=== PATIENT | female | born 1985 | race Caucasian/White ===

== ENCOUNTER 2016-09-01 17:45 | Outpatient (CLI) | payer BC, MEDICAID ==
[2016-09-01 19:15] LABS: APPEARANCE,URINE CLEAR; BILIRUBIN,URINE NEGATIVE (NEGATIVE); GLUCOSE, URINE NEGATIVE (NEGATIVE); KETONES,URINE NEGATIVE (NEGATIVE); LEUKOCYTE ESTERASE,URINE SMALL (NEGATIVE); NITRITE,URINE NEGATIVE (NEGATIVE); PROTEIN,URINE NEGATIVE (NEGATIVE); URINE SPECIFIC GRAVITY 1.004; UROBILINOGEN,URINE NEGATIVE mg/dL (<2.0)
[2016-09-01 19:30] LABS: ABSOLUTE EOSINOPHILS # (AUTO) 0.1 10^3/uL (0.0-0.6); ABSOLUTE MONOCYTES (AUTO) 0.5 10^3/uL (0.1-1.4); ABSOLUTE NEUT (AUTO) 6.8 10^3/uL (1.7-8.2); BASOPHILS % (AUTO) 0.3 % (0-2); EOSINOPHILS % (AUTO) 0.9 % (0-6); HEMATOCRIT 34.3 % (36.0-47.0); HEMOGLOBIN 11.3 g/dL (12.0-15.5); HGB HCT DIFFERENCE -0.4; LYMPHOCYTES % (AUTO) 21.5 % (13-45); MEAN CORPUSCULAR HEMOGLOBIN 29.5 pg (27.0-33.4); MEAN CORPUSCULAR HGB CONC 32.9 g/dL (32.0-36.0); MEAN CORPUSCULAR VOLUME 90 fl (80-97); MONOCYTES % (AUTO) 5.4 % (3-13); RED BLOOD COUNT 3.82 10^6/uL (3.72-5.28); RED CELL DISTRIBUTION WIDTH 15.2 % (11.5-14.0); SEGMENTED NEUTROPHILS % (AUTO) 71.9 % (42-78); WHITE BLOOD COUNT 9.5 10^3/uL (4.0-10.5)
[2016-09-01 19:32] LABS: URINE BARBITURATES SCREEN NEGATIVE; URINE METHADONE SCREEN NEGATIVE; URINE OPIATES LOW NEGATIVE; URINE PHENCYCLIDINE SCREEN NEGATIVE
[2016-09-01 19:41] LABS: URINE CREATININE 33.8 mg/dL (16-327); URINE PROTEIN 15.3 mg/dL (<12)
[2016-09-01 19:48] LABS: ALANINE AMINOTRANSFERASE 28 U/L (9-52); ALBUMIN 3.2 g/dL (3.5-5.0); ALKALINE PHOSPHATASE 136 U/L (38-126); ANION GAP 11 (5-19); ASPARTATE AMINO TRANSFERASE 19 U/L (14-36); BILIRUBIN,DIRECT 0.3 mg/dL (0.0-0.4); BILIRUBIN,TOTAL 0.5 mg/dL (0.2-1.3); BLOOD UREA NITROGEN 5 mg/dL (7-20); CALCIUM 8.9 mg/dL (8.4-10.2); CARBON DIOXIDE 20 mmol/L (22-30); CHLORIDE 108 mmol/L (98-107); CREATININE RESULT 0.56 mg/dL (0.52-1.25); GLUCOSE 76 mg/dL (75-110); LDH 422 U/L (313-618); POTASSIUM 3.7 mmol/L (3.6-5.0); TOTAL PROTEIN 5.9 g/dL (6.3-8.2); URIC ACID 4.4 mg/dL (2.5-6.2)
--- NOTE | 2016-09-01 20:20 | Non Stress Test Report ---
Non Stress Test Datetime Report Generated by CPN: 09/01/2016 20:20 DEMOGRAPHIC Test Number: 1 EGA NST: 35.6 INDICATION Indication for Study: Ordered by Provider MONITORING Monitor Explained: Monitor Explained; Test Explained; Patient Verbalized Understanding Time on Monitor: 09/01/2016 18:52 Time off Monitor: 09/01/2016 20:07 NST Duration: 75 NST INTERVENTIONS NST Interventions: PO Hydration; Reposition Patient Physician Notified NST: Lepe BABY A: [id number] BABY A Movement : Present Contraction Frequency : 10-15 FHR Baseline : 135 Accelerations : 15X15 Decelerations : None Variability : Moderate 6-25bpm NST Review: Meets Criteria for Reactive NST NST Review and Verified By : ALESHA Quiroz Results: Reactive NST REPORT Report Trigger: Send Report
== END 2016-09-01 20:15 | disposition home or self-care (01) ==
LOC: LC 17:45 → ER 17:45 → LC 17:45 → EDSTATUS 18:16 → LC 20:15
PROVIDERS: ATTEND Obstetrics & Gynecology
PROC: 4A0HXCZ Measurement of Products of Conception, Cardiac Rate, External Approach (ICD-10-PCS; principal; 2016-09-01)
DX: O47.03 False labor before 37 completed weeks of gestation, third trimester (principal); Z3A.35 35 weeks gestation of pregnancy
CPT/HCPCS: 36415; 59025; 80053; 80307; 81001; 82570; 83615; 84156; 84550; 85025

== ENCOUNTER 2016-09-18 16:38 | Outpatient (CLI) | payer BC, MEDICAID ==
[2016-09-18 17:15] LABS: ABSOLUTE EOSINOPHILS # (AUTO) 0.1 10^3/uL (0.0-0.6); ABSOLUTE LYMPHOCYTES (AUTO) 2.1 10^3/uL (0.5-4.7); ABSOLUTE MONOCYTES (AUTO) 0.5 10^3/uL (0.1-1.4); ABSOLUTE NEUT (AUTO) 6.2 10^3/uL (1.7-8.2); BASOPHILS % (AUTO) 0.3 % (0-2); EOSINOPHILS % (AUTO) 1.1 % (0-6); HEMATOCRIT 33.4 % (36.0-47.0); HEMOGLOBIN 11.6 g/dL (12.0-15.5); HGB HCT DIFFERENCE 1.4; LYMPHOCYTES % (AUTO) 23.4 % (13-45); MEAN CORPUSCULAR HEMOGLOBIN 30.2 pg (27.0-33.4); MEAN CORPUSCULAR HGB CONC 34.6 g/dL (32.0-36.0); MEAN CORPUSCULAR VOLUME 87 fl (80-97); MONOCYTES % (AUTO) 5.4 % (3-13); RED BLOOD COUNT 3.83 10^6/uL (3.72-5.28); RED CELL DISTRIBUTION WIDTH 14.9 % (11.5-14.0); SEGMENTED NEUTROPHILS % (AUTO) 69.8 % (42-78); WHITE BLOOD COUNT 8.8 10^3/uL (4.0-10.5)
[2016-09-18 17:26] LABS: APPEARANCE,URINE SLIGHTLY-CLOUDY; BILIRUBIN,URINE NEGATIVE (NEGATIVE); GLUCOSE, URINE NEGATIVE (NEGATIVE); KETONES,URINE NEGATIVE (NEGATIVE); LEUKOCYTE ESTERASE,URINE LARGE (NEGATIVE); NITRITE,URINE NEGATIVE (NEGATIVE); PROTEIN,URINE NEGATIVE (NEGATIVE); URINE SPECIFIC GRAVITY 1.003; UROBILINOGEN,URINE NEGATIVE mg/dL (<2.0)
[2016-09-18 17:30] LABS: ALANINE AMINOTRANSFERASE 25 U/L (9-52); ALBUMIN 3.2 g/dL (3.5-5.0); ALKALINE PHOSPHATASE 162 U/L (38-126); ANION GAP 13 (5-19); ASPARTATE AMINO TRANSFERASE 23 U/L (14-36); BILIRUBIN,DIRECT 0.3 mg/dL (0.0-0.4); BILIRUBIN,TOTAL 0.5 mg/dL (0.2-1.3); BLOOD UREA NITROGEN 3 mg/dL (7-20); CALCIUM 9.3 mg/dL (8.4-10.2); CARBON DIOXIDE 21 mmol/L (22-30); CHLORIDE 106 mmol/L (98-107); GLUCOSE 85 mg/dL (75-110); LDH 433 U/L (313-618); POTASSIUM 3.2 mmol/L (3.6-5.0); SODIUM 139.9 mmol/L (137-145); TOTAL PROTEIN 6.1 g/dL (6.3-8.2); URIC ACID 5.7 mg/dL (2.5-6.2)
[2016-09-18 17:39] LABS: URINE BARBITURATES SCREEN NEGATIVE; URINE METHADONE SCREEN NEGATIVE; URINE OPIATES LOW NEGATIVE; URINE PHENCYCLIDINE SCREEN NEGATIVE
[2016-09-18 17:44] LABS: URINE CREATININE 44.8 mg/dL (16-327); URINE PROTEIN 17.7 mg/dL (<12)
[2016-09-18] MEDS ORDERED: RINGERS SOLUTION,LACTATED 1,000 ML IV PRN (18:39)
[2016-09-18] MEDS ORDERED: HYDROXYZINE PAMOATE 50 MG CAPSULE PO ONE (21:23)
[2016-09-18] MEDS ORDERED: HYDROXYZINE PAMOATE 50 MG CAPSULE ONE (21:28)
--- NOTE | 2016-09-18 21:45 | Non Stress Test Report ---
Non Stress Test Datetime Report Generated by CPN: 09/18/2016 21:45 DEMOGRAPHIC EGA NST: 38.2 INDICATION Indication for Study: Ordered by Provider MONITORING Monitor Explained: Monitor Explained; Test Explained; Patient Verbalized Understanding Time on Monitor: 09/18/2016 17:04 Time off Monitor: 09/18/2016 20:19 NST Duration: 195 NST INTERVENTIONS NST Interventions: PO Hydration; IV Fluids; Reposition Patient Physician Notified NST: Leopoldo BABY A: [id number] BABY A Movement : Present Contraction Frequency : 4-9 FHR Baseline : 135 Accelerations : 15X15 Decelerations : None Variability : Moderate 6-25bpm NST Review: Meets Criteria for Reactive NST NST Review and Verified By : ALESHA Todd Results: Reactive NST REPORT Report Trigger: Send Report
== END 2016-09-18 21:43 | disposition home or self-care (01) ==
LOC: LC 16:38
PROVIDERS: ATTEND Obstetrics & Gynecology
PROC: 4A1HXCZ Monitoring of Products of Conception, Cardiac Rate, External Approach (ICD-10-PCS; principal; 2016-09-18)
DX: O47.1 False labor at or after 37 completed weeks of gestation (principal); Z3A.38 38 weeks gestation of pregnancy
CPT/HCPCS: 36415; 59025; 80053; 80307; 81001; 82570; 83615; 84156; 84550; 85025

== ENCOUNTER 2016-09-22 15:51 | Inpatient (IN) | payer BC, MEDICAID ==
[2016-09-22 16:45] LABS: HEMATOCRIT 35.8 % (36.0-47.0); HEMOGLOBIN 12.5 g/dL (12.0-15.5); HGB HCT DIFFERENCE 1.7; MEAN CORPUSCULAR HEMOGLOBIN 30.5 pg (27.0-33.4); MEAN CORPUSCULAR VOLUME 87 fl (80-97); RED BLOOD COUNT 4.11 10^6/uL (3.72-5.28); WHITE BLOOD COUNT 10.2 10^3/uL (4.0-10.5)
[2016-09-22 17:09] LABS: URINE BARBITURATES SCREEN NEGATIVE; URINE METHADONE SCREEN NEGATIVE; URINE OPIATES LOW NEGATIVE; URINE PHENCYCLIDINE SCREEN NEGATIVE
[2016-09-22 17:21] LABS: ALANINE AMINOTRANSFERASE 27 U/L (9-52); ALBUMIN 3.5 g/dL (3.5-5.0); ALKALINE PHOSPHATASE 182 U/L (38-126); ANION GAP 14 (5-19); ASPARTATE AMINO TRANSFERASE 27 U/L (14-36); BILIRUBIN,DIRECT 0.4 mg/dL (0.0-0.4); BILIRUBIN,TOTAL 0.7 mg/dL (0.2-1.3); BLOOD UREA NITROGEN 3 mg/dL (7-20); CALCIUM 9.2 mg/dL (8.4-10.2); CARBON DIOXIDE 18 mmol/L (22-30); CHLORIDE 107 mmol/L (98-107); CREATININE RESULT 0.72 mg/dL (0.52-1.25); GLUCOSE 79 mg/dL (75-110); LDH 487 U/L (313-618); POTASSIUM 3.5 mmol/L (3.6-5.0); SODIUM 139.2 mmol/L (137-145); TOTAL PROTEIN 6.2 g/dL (6.3-8.2); URIC ACID 5.8 mg/dL (2.5-6.2)
[2016-09-22] MEDS ORDERED: RINGERS SOLUTION,LACTATED 1,000 ML IV ONE (17:23)
[2016-09-22] MEDS ORDERED: PENICILLIN G POTASSIUM 5,000,000 UNIT in DEXTROSE 5%-WATER 100 ML IV ONE (17:23)
[2016-09-22] MEDS ORDERED: DINOPROSTONE 10 MG VAGINAL INSERT.SR PV PRN (17:24)
[2016-09-22] MEDS ORDERED: DINOPROSTONE 10 MG VAGINAL INSERT.SR ONE (17:30)
[2016-09-22 17:53] LABS: URINE CREATININE 76.3 mg/dL (16-327); URINE PROTEIN 19.7 mg/dL (<12)
[2016-09-22 18:48] LABS: BAND NEUTROPHILS % (MANUAL) 1 % (3-5); BASOPHILS % (MANUAL) 0 % (0-2); EOSINOPHILS % (MANUAL) 1 % (0-6); LYMPHOCYTES % (MANUAL) 23 % (13-45); NUCLEATED RED BLOOD CELLS 1 /100 WBC (0); TOTAL CELLS COUNTED 100
[2016-09-22 18:49] LABS: ANISOCYTOSIS SLIGHT; HYPOCHROMASIA SLIGHT
[2016-09-22] MEDS ORDERED: NALBUPHINE HCL INJ 10 MG/1 ML AMPULE ONE (19:48)
[2016-09-22] MEDS ORDERED: PENICILLIN G-K 5 MILLION UNIT VIAL ONE (19:48)
[2016-09-22] MEDS ORDERED: NALBUPHINE HCL INJ 10 MG/1 ML AMPULE INJ ONE (19:51)
[2016-09-22 20:02] LABS: AMNISURE (ROM) POSITIVE (NEGATIVE)
[2016-09-22] MEDS: RINGERS SOLUTION,LACTATED 1,000 ML IV PRN ×2 (20:04→20:34)
--- NOTE | 2016-09-22 20:21 | L&D Progress Notes ---
PROGRESS NOTES Datetime Report Generated by CPN: 09/22/2016 20:21 PROGRESS NOTE Impression: Normal Progression of Labor; Reactive Non Stress Test; Rupture of Membranes Impression: Normal Progression of Labor; Rupture of Membranes Procedures: Sterile Vag Exam Procedures: Sterile Vag Exam Plan: Continue Present Management; Induction Plan: Continue Present Management Informed Consent Obtained: Vaginal Delivery; Risks, Benefits and Alternatives Discussed Informed Consent Obtained: Vaginal Delivery; Induction of Labor; Risks, Benefits and Alternatives Discussed Vital Signs : Reviewed; Within Normal Limits Comment: Pt admitted for IOL due to GHTN and poss PreE. Mild range BPs. Pt called for poss Leakage of fluid. Exam revealed no change in cervical exam. However, + clear fluid. Amnisure done and positive. PROM at 1930. Anticipate . Continue with IOL. PCN for GBS positive prophy. VAGINAL EXAM Dilatation: 1 Dilatation: 1 Effacement: 25 Effacement: 25 Station: -3 Station: -3 Contractions: q2-4 MEMBRANES Pooling: Positive Membranes: Ruptured Membranes: Intact Amniotic Fluid Color: Clear FETUS A FHR - Baseline: 125 Monitoring: External US Variability: Moderate 6-25bpm Accelerations: 15X15 Decelerations: None FHR Category: Category I Presentation: Vertex SIGNATURE SIGNATURE: [id number];[id number] SIGNATURE: [id number] SIGNATURE: [id number] Signature: with User ID: [email or web address]
[2016-09-22] MEDS ORDERED: ONDANSETRON HCL INJ/PF 4 MG/2 ML SDV IV ONE (20:35)
[2016-09-22] MEDS ORDERED: ONDANSETRON HCL INJ/PF 4 MG/2 ML SDV ONE (20:39)
[2016-09-22 21:45] LABS: APPEARANCE,URINE SLIGHTLY-CLOUDY; BILIRUBIN,URINE NEGATIVE (NEGATIVE); GLUCOSE, URINE NEGATIVE (NEGATIVE); KETONES,URINE NEGATIVE (NEGATIVE); LEUKOCYTE ESTERASE,URINE LARGE (NEGATIVE); NITRITE,URINE NEGATIVE (NEGATIVE); PROTEIN,URINE NEGATIVE (NEGATIVE); URINE SPECIFIC GRAVITY 1.008; UROBILINOGEN,URINE NEGATIVE mg/dL (<2.0)
[2016-09-22] MEDS ORDERED: PHENYLEPHRINE HCL INJ/PF 10 MG/1 ML SDV ONE (22:23)
[2016-09-22] MEDS ORDERED: EPHEDRINE SULFATE INJ 50 MG/1 ML AMPULE ONE (22:23)
[2016-09-22] MEDS ORDERED: FENTANYL CITRATE INJ/PF 100 MCG/2 ML AMPUL ONE (22:23)
[2016-09-22] MEDS ORDERED: BUPIVACAINE HCL 0.25 % INJ/PF (2.5 MG/1 ML) 30 ML VIAL ONE (22:24)
[2016-09-22] MEDS ORDERED: FENTANYL/BUPIVACAINE/NS/PF 200 MCG/100 ML RTUINJ EPI ONE (22:24)
[2016-09-23] MEDS ORDERED: PENICILLIN G-K 5 MILLION UNIT VIAL ONE ×3 (00:16→07:30)
[2016-09-23] MEDS: PENICILLIN G POTASSIUM 2,500,000 UNIT in DEXTROSE 5%-WATER 50 ML IV SCH ×3 (00:21→07:32)
[2016-09-23] MEDS: RINGERS SOLUTION,LACTATED 1,000 ML IV PRN (00:43)
[2016-09-23] MEDS ORDERED: ONDANSETRON HCL INJ/PF 4 MG/2 ML SDV IV ONE ×2 (00:49→01:00)
[2016-09-23] MEDS ORDERED: ONDANSETRON HCL INJ/PF 4 MG/2 ML SDV ONE (00:55)
[2016-09-23] MEDS ORDERED: OXYTOCIN/NORMAL SALINE 20 UNIT/1,000 ML RTUINJ ONE (04:05)
[2016-09-23] MEDS ORDERED: MISOPROSTOL 0.2 MG TABLET ONE (04:05)
[2016-09-23] MEDS ORDERED: LIDOCAINE 1% INJ-PF (10 MG/ML) 30 ML SDV ONE (04:05)
[2016-09-23] MEDS ORDERED: OXYTOCIN/NORMAL SALINE 1,000 ML IV PRN ×2 (04:38→08:50)
[2016-09-23] MEDS ORDERED: BUPIVACAINE HCL 0.25 % INJ/PF (2.5 MG/1 ML) 30 ML VIAL ONE (06:21)
[2016-09-23] MEDS ORDERED: DIPHENHYDRAMINE HCL 50 MG/ML VIAL ONE (06:24)
[2016-09-23] MEDS ORDERED: DIPHENHYDRAMINE HCL 50 MG/ML VIAL IV ONE (06:30)
--- NOTE | 2016-09-23 07:21 | L&D Progress Notes ---
PROGRESS NOTES Datetime Report Generated by CPN: 09/23/2016 07:21 PROGRESS NOTE Impression: Normal Progression of Labor Procedures: Sterile Vag Exam Plan: Continue Present Management; Anticipate Vaginal Delivery Informed Consent Obtained: Vaginal Delivery; Risks, Benefits and Alternatives Discussed Vital Signs : Reviewed; Within Normal Limits Comment: 39+0ega here for IOL due to GHTN. BPs wnl and doing well. Cervidil initiated last pm and then SROM and pt changed to 4cm and cervidil fell out in bathroom per RN report. Ctx spaced out and then pitocin started. Bloody discharge noted and cvx reassesed - AL/c/+1. Will allow to labor down and continued cervical change. Anticipate and beginning to push soon. Reassuring FWB. EFW 8# VAGINAL EXAM Dilatation: AL Effacement: 100 Station: 1 MEMBRANES Membranes: Ruptured Amniotic Fluid Color: Clear FETUS A FHR - Baseline: 125 Monitoring: External US Variability: Moderate 6-25bpm Accelerations: 15X15 Decelerations: Early FHR Category: Category I FETUS C SIGNATURE: [id number];[id number] Signature: with User ID: [email or web address]
[2016-09-23] MEDS ORDERED: ZOLPIDEM TARTRATE 5 MG TABLET PO PRN (08:50)
[2016-09-23] MEDS ORDERED: BENZOCAINE/MENTHOL AEROSOL SPRAY 56 ML TOP PRN (08:50)
[2016-09-23] MEDS ORDERED: MEASLES,MUMPS&RUBELLA VACC/PF 0.5 ML VIAL SUBCUT PRN (08:50)
[2016-09-23] MEDS ORDERED: ACETAMINOPHEN WITH CODEINE #3 TABLET PO PRN (08:50)
[2016-09-23] MEDS ORDERED: DIBUCAINE 1% OINTMENT 28 GM TP PRN (08:50)
[2016-09-23] MEDS ORDERED: DIPH/PERTUSS(ACELL)/TETANUS VAC/PF 0.5 ML SYR (>=10YO) IM PRN (08:50)
[2016-09-23] MEDS ORDERED: ACETAMINOPHEN 325 MG TABLET ONE (10:50)
[2016-09-23 11:26] LABS: ALANINE AMINOTRANSFERASE 22 U/L (9-52); ALBUMIN 3.1 g/dL (3.5-5.0); ALKALINE PHOSPHATASE 167 U/L (38-126); ANION GAP 15 (5-19); ASPARTATE AMINO TRANSFERASE 39 U/L (14-36); BILIRUBIN,DIRECT 0.3 mg/dL (0.0-0.4); BILIRUBIN,TOTAL 0.9 mg/dL (0.2-1.3); BLOOD UREA NITROGEN 3 mg/dL (7-20); CALCIUM 8.3 mg/dL (8.4-10.2); CARBON DIOXIDE 18 mmol/L (22-30); CHLORIDE 107 mmol/L (98-107); CREATININE RESULT 0.73 mg/dL (0.52-1.25); GLUCOSE 145 mg/dL (75-110); SODIUM 139.9 mmol/L (137-145); TOTAL PROTEIN 5.7 g/dL (6.3-8.2)
[2016-09-23 11:30] LABS: POTASSIUM 2.8 mmol/L (3.6-5.0)
--- NOTE | 2016-09-23 11:35 | Admission Physical ---
Datetime Report Generated by CPN: 09/23/2016 11:34 CURRENT ADMISSION Chief Complaint: Scheduled Induction of Labor Indication for Induction: Gestational HTN Admit Plan: Admit to Unit; Initiate Labor Induction Protocol ALLERGIES Medication Allergies: No Medication Allergies: No Known Allergies (09/22/2016) Medication Allergies: No Known Allergies (09/18/2016) Medication Allergies: No Known Allergies (09/01/2016) Latex: No Latex Allergies Food Allergies: none Environmental Allergies: none OBSTETRICAL HISTORY EDC: 09/30/2016 00:00 : 3 Para: 2 Term: 2 : 0 SAB: 0 IAB: 0 Ectopic: 0 Livin Cesareans: 0 VBACs: 0 Multiple Births: 0 Gestational Diabetes: No Rh Sensitization: No Incompetent Cervix: No VAUGHN: No Infertility: No ART Treatment: No Uterine Anomaly: No IUGR: No Hx Previous C/S: No Macrosomia: No Hx Loss/Stillborn: No PIH: Yes Hx : No Placenta Previa/Abruption: No Depression/PP Depression: No PTL/PROM: No Post Hemorrhage: No Current Procedures: Ultrasound Obstetrical History Comments: G1 08/2002 40 weeks 3 days Vaginal Delivery G2 - 04/2008 38 weeks PIH Vaginal Delivery G3 - Current SEE RECORDS Alcohol: No Marijuana : No Cocaine: No Other Illicit Drugs: No Cigarettes: Former Smoker. [id number] MEDICAL HISTORY Diabetes: No Blood Transfusion: No Pulmonary Disease (Asthma, TB): No Breast Disease: No Hypertension: No Supervisor Painting Surgery: No Heart Disease: No Hosp/Surgery: Yes Autoimmune Disorder: No Anesthetic Complications: No Kidney Disease: No Abnormal Pap Smear: No Neuro/Epilepsy: No Psychiatric Disorders: No Other Medical Diseases: No Hepatitis/Liver Disease: No Significant Family History: No Varicosities/Phlebitis: No Trauma/Violence : No Thyroid Dysfunction: No Medical History Comments: CHILDBIRTH INFECTIOUS HISTORY Gonorrhea: No Genital Herpes: No Chlamydia: Yes Tuberculosis: No Syphilis: No Hepatitis: No HIV/AIDS Exposure: No Rash or Viral Illness: No HPV: No Infectious History Comments: 2009 - Chlamydia (Unsure) PHYSICAL EXAM General: Normal HEENT: Normal Neurologic: Normal Thyroid: Normal Heart: Normal Lungs: Normal Breast: Deferred Back: Normal Abdomen: Normal Genitourinary Exam: Normal Extremities: Normal DTRs: Normal Pelvic Type: Adequate Physical Exam Comments: pelvis proven to 7# Vital Signs: Reviewed Details Vital Signs: mild range BPs VAGINAL EXAM Dilatation: AL Dilatation: 1 Dilatation: 1 Effacement: 100 Effacement: 25 Effacement: 25 Station: 1 Station: -3 Station: -3 Contraction Comments: q2-4 MEMBRANES Pooling: Positive Membranes: Ruptured Membranes: Ruptured Membranes: Intact Amniotic Fluid Color: Clear Amniotic Fluid Color: Clear FETUS A EGA: 38.6 Monitoring: External US FHR- Baseline: 130 Variability: Moderate 6-25bpm Accelerations: 15X15 Decelerations: None FHR Category: Category I Presentation: Vertex Admit Comment: 30yo at 38+6ega seen in L_D last week for elevated BPs. Protein: Creatinine ratio was 0.4 but o/w labs normal. TOday P:C ration is 0.3 and o/w labs normal. H/o preE with prior . Abnormal 1 hr GTT/ normal 3 hr GTT. Rubella NI. GBS pos - PCN for prophy once cervidil is removed. Due to unfavorable cervix will begin cervical ripening with cervidil then re-eval for needs of cervical ripening continuation versus pitocin. Severe range BPs in the office. TERAN today. Will treat for TERAN. PLANS FOR LABOR AND DELIVERY Labor and Delivery: None Pain Management: Epidural Feeding Preference: Formula Benefit of Breast Feed Discussed: Yes Circumcision: N/A INFORMED CONSENT Informed Consent Obtained: Vaginal Delivery; Risks, Benefits and Alternatives Discussed Informed Consent Obtained: Vaginal Delivery; Risks, Benefits and Alternatives Discussed Informed Consent Obtained: Vaginal Delivery; Induction of Labor; Risks, Benefits and Alternatives Discussed Signature: Electronically signed by Rebecca Garcia MD ([facility]) on 09/22/2016 at 18:52 with User ID: [email or web address]
[2016-09-23] MEDS ORDERED: POTASSIUM CHLORIDE 10 MEQ TABLET.SA PO ONE (12:30)
[2016-09-23] MEDS ORDERED: HYDROXYZINE PAMOATE 50 MG CAPSULE PO ONE (13:00)
[2016-09-23] MEDS: SENNOSIDES/DOCUSATE 8.6-50 MG 1 EACH TABLET PO SCH (13:55)
[2016-09-23] MEDS: DOCUSATE SODIUM 100 MG CAPSULE PO SCH ×2 (13:55→17:21)
[2016-09-23] MEDS: PRENATAL VITAMIN W-O CA NO5/FE FUMARATE/FA CAPSULE PO SCH (13:55)
[2016-09-23] MEDS: FERROUS SULFATE 325 MG TABLET PO SCH ×2 (13:55→17:21)
[2016-09-23] MEDS: IBUPROFEN 800 MG TABLET PO SCH ×2 (15:07→21:37)
[2016-09-23] MEDS: ACETAMINOPHEN WITH CODEINE #3 TABLET PO PRN (17:36)
--- NOTE | 2016-09-23 18:27 | EKG REPORT ---
SEVERITY:- BORDERLINE ECG - SINUS TACHYCARDIA NONSPECIFIC ST-T CHANGES- INFERIOR LEADS : Confirmed by: lAon Paulson MD 23-Sep-2016 18:26:50
[2016-09-24] MEDS: ACETAMINOPHEN WITH CODEINE #3 TABLET PO PRN ×3 (04:05→19:47)
[2016-09-24] MEDS: IBUPROFEN 800 MG TABLET PO SCH ×3 (05:57→21:12)
[2016-09-24 07:36] LABS: HEMATOCRIT 30.5 % (36.0-47.0); MEAN CORPUSCULAR HEMOGLOBIN 30.7 pg (27.0-33.4); MEAN CORPUSCULAR HGB CONC 34.5 g/dL (32.0-36.0); MEAN CORPUSCULAR VOLUME 89 fl (80-97); RED BLOOD COUNT 3.43 10^6/uL (3.72-5.28); RED CELL DISTRIBUTION WIDTH 15.2 % (11.5-14.0); WHITE BLOOD COUNT 11.4 10^3/uL (4.0-10.5)
[2016-09-24 07:38] LABS: HEMOGLOBIN 10.5 g/dL (12.0-15.5)
[2016-09-24] MEDS: DOCUSATE SODIUM 100 MG CAPSULE PO SCH ×2 (09:59→18:46)
[2016-09-24] MEDS: SENNOSIDES/DOCUSATE 8.6-50 MG 1 EACH TABLET PO SCH (09:59)
[2016-09-24] MEDS: PRENATAL VITAMIN W-O CA NO5/FE FUMARATE/FA CAPSULE PO SCH (09:59)
[2016-09-24] MEDS: FERROUS SULFATE 325 MG TABLET PO SCH ×2 (10:00→18:46)
--- NOTE | 2016-09-24 12:19 | PDOC PROGRESS REPORT ---
Subjective-OB Subjective: Post Delivery Day:1 30 year old G3 now P3 s/p ppd1. States lochia is stable and pain well controlled. Voiding without difficulty. Denies any needs at this time Physical Exam (OB) Vital Signs: Temp Pulse Resp BP Pulse Ox 97.5 F 82 16 128/78 H 100 09/24/16 08:08 09/24/16 08:08 09/24/16 08:08 09/24/16 08:08 09/24/16 08:08 Intake & Output 09/23/16 09/24/16 09/25/16 06:59 06:59 06:59 Weight 85.15 kg - General General Appearance: Appears well In distress: None - PIH/Pre-Eclampsia Clonus: Negative Headache: Absent Epigastric Pain: No Visual Changes: No - Episiotomy/Laceration Site Condition: Well Approximated, Edematous - Lochia Lochia Amount: Scant < 10 ml Lochia Color: Rubra/Red - Abdomen Description: Soft, Flat Hernia Present: No Fundal Description: Firm, Midline Fundal Height: u/u - u/2 - Respiratory Respiratory Status: No respiratory distress - Extremities Upper extremity: Normal inspection Lower extremities: Edema - Neurological Cognition: Normal Orientation: AAOx4 - Psychological Associated symptoms: Normal affect, Normal mood Objective-Diagnostic Laboratory: 09/24/16 07:15 09/23/16 11:09 09/23/16 09/24/16 11:09 07:15 WBC 11.4 H RBC 3.43 L Hgb 10.5 L Hct 30.5 L MCV 89 MCH 30.7 MCHC 34.5 RDW 15.2 H Plt Count 256 Sodium 139.9 Potassium 2.8 L* Chloride 107 Carbon Dioxide 18 L Anion Gap 15 BUN 3 L Creatinine 0.73 Est GFR ( Amer) > 60 Est GFR (Non-Af Amer) > 60 Glucose 145 H Calcium 8.3 L Total Bilirubin 0.9 AST 39 H ALT 22 Alkaline Phosphatase 167 H Total Protein 5.7 L Albumin 3.1 L Assessment and Plan(PN) - Assessment and Plan (1) Gestational hypertension Qualifiers: Trimester: unspecified trimester Qualified Code(s): O13.9 - Gestational [-induced] hypertension without significant proteinuria, unspecified trimester Is this a current diagnosis for this admission?: YesPlan: continue stay (2) Vaginal delivery Is this a current diagnosis for this admission?: YesPlan: continue stay (3) Acute blood loss anemia Is this a current diagnosis for this admission?: YesPlan: continue stay - Time Spent with Patient Time with patient: 15-25 minutes Medications reviewed and adjusted accordingly: Yes - Disposition Anticipated Discharge: Home Within: within 24 hours
[2016-09-25] MEDS: ACETAMINOPHEN WITH CODEINE #3 TABLET PO PRN (01:59)
[2016-09-25] MEDS: IBUPROFEN 800 MG TABLET PO SCH ×2 (06:09→13:28)
[2016-09-25 09:23] VITALS: BP 142/86
[2016-09-25] MEDS: PRENATAL VITAMIN W-O CA NO5/FE FUMARATE/FA CAPSULE PO SCH (09:43)
[2016-09-25] MEDS: FERROUS SULFATE 325 MG TABLET PO SCH (09:43)
[2016-09-25] MEDS: DOCUSATE SODIUM 100 MG CAPSULE PO SCH (09:43)
[2016-09-25] MEDS: SENNOSIDES/DOCUSATE 8.6-50 MG 1 EACH TABLET PO SCH (09:43)
--- NOTE | 2016-09-25 11:50 | PDOC DISCHARGE SUMMARY ---
Final Diagnosis Discharge Date: 09/25/16 - Final Diagnosis (1) Acute blood loss anemia Is this a current diagnosis for this admission?: Yes (2) Gestational hypertension Is this a current diagnosis for this admission?: Yes (3) Vaginal delivery Is this a current diagnosis for this admission?: Yes Discharge Data - Discharge Medication Home Medications: Esomeprazole Magnesium [Nexium 24Hr] 20 mg PO DAILY 09/01/16 Ferrous Sulfate [Iron] 1 tab PO DAILY 09/01/16 Cmb#95/Iron/FA/Dha [ + Dha Combo Pack] 1 tab PO DAILY 09/01/16 Reason(s) for Admission: Induction of Labor Procedures: None Intrapartum Procedure(s): Spontaneous Vaginal Delivery Complication(s): Laceration-Periurethral Laceration-Degree: 1st - Diagnosis Test Laboratory: Temp Pulse Resp BP Pulse Ox 97.4 F 77 16 142/86 H 99 09/25/16 09:30 09/25/16 09:30 09/25/16 09:30 09/25/16 09:30 09/25/16 09:30 09/22/16 09/22/16 09/22/16 16:22 16:22 16:22 RBC 4.11 Cancelled Hgb 12.5 Cancelled Hct 35.8 L Cancelled Urine Opiates Screen NEGATIVE 09/24/16 07:15 RBC 3.43 L Hgb 10.5 L Hct 30.5 L Urine Opiates Screen - Discharge information/Instructions Discharge Activity: No Lifting Over 10 Pounds, Pelvic Rest, No tub bath Discharge Diet: Regular Disposition: HOME, SELF-CARE Follow up with: [facility] in: 4
--- NOTE | 2016-10-03 13:30 | Delivery Summary ---
Del Sum A-C Datetime Report Generated by Shital: 10/03/2016 13:30 DELIVERY PERSONNEL DELIVERY PERSONNEL: 13,[id number];10,[id number];14,[id number];15,[id number] DELIVERY PERSONNEL: 15,[id number];14,[id number];10,[id number];13,[id number] DELIVERY PERSONNEL: 13,[id number];10,8609846806;14,[id number];15,[id number] DELIVERY PERSONNEL: 15,[id number];14,[id number];10,0985831057;13,[id number] DELIVERY PERSONNEL: 13,[id number];10,[id number];14,[id number] DELIVERY PERSONNEL: 14,[id number];10,[id number] DELIVERY PERSONNEL: 10,[id number];14,[id number] DELIVERY PERSONNEL: 14,[id number] DELIVERY PERSONNEL: 14,[id number] Delivery Doctor:: Katrin Reed CNM Nurse Design And Sales Consultant Certified:: Katrin Reed CNM Labor and Delivery Nurse:: Charisma Ortiz RN Labor and Delivery Nurse:: ABRAHAN Stokes Work Order Clerk/CLAM BED LABORER: Latasha Haddad CNA II MATERNAL INFORMATION Delivery Anesthesia: Epidural Medications After Delivery: Pitocin Drip 20 Units/1000ml NSS Estimated Blood Loss (ml): 250 Maternal Complications: None Provider Comments: of viable female infant over intact perineum. Head, shoulder, and body delivered without difficulty. with spontaneous cry and respirations, to maternal abdomen, cord clamped X2, cut free after 2 min delay. Spontaneous delivery of placenta, via garcia mechanism. appears intact, 3 VC. Laceration repaired as above, hemostasis acheived with external fundal massage and IV pitocin, mother and infant in stable condition, routine pp care LABOR SUMMARY EDC: 09/30/2016 00:00 No. Babies in Womb: 1 Attempted: No Labor Anesthesia: Epidural LABOR INFORMATION Reason for Induction: Gestational Hypertension Onset of Labor: 09/22/2016 19:00 Complete Dilatation: 09/23/2016 07:54 Cervical Ripening Agents: Cervidil Oxytocin: Augmentation Group B Beta Strep: POSITIVE Antibiotics # of Doses: 4 Antibiotics Time of Last Dose: 734 Name of Antibiotic Given: Penicillin Steroids Given: None Reason Steroids Not Administered: Not Applicable MEMBRANES Membranes Rupture Method: Spontaneous Rupture of Membranes: 09/22/2016 19:34 Length of Rupture (hr): 12.82 Amniotic Fluid Color: Clear Amniotic Fluid Amount: Small Amniotic Fluid Odor: Normal STAGES OF LABOR Stage 1 hr: 12 Stage 1 min: 54 Stage 2 hr: 0 Stage 2 min: 29 Stage 3 hr: 0 Stage 3 min: 3 Total Time in Labor hr: 13 Total Time in Labor min: 26 VAGINAL DELIVERY Episiotomy: None Laceration Extension: First Degree Laceration Type: Periurethral Laceration Repair: Yes Laceration Repair Note: Reaired with 3-0 chromic, 3 single sutures Sponge Count Correct: N/A Sharps Count Correct: N/A CSECTION DELIVERY Primary Indication: N/A Secondary Indication: N/A CSection Incidence: N/A Labor: N/A Elective: N/A CSection Incision: N/A BABY A INFORMATION Delivery Date/Time: 09/23/2016 08:23 Method of Delivery: Vaginal Method of Delivery: Vaginal Born in Route : No : N/A Forceps: N/A Vacuum Extraction: N/A Shoulder Dystocia : No PRESENTATION/POSITION BABY A Presentation: Cephalic Cephalic Presentation: Vertex Vertex Position: Right Occipital Anterior Breech Presentation: N/A PLACENTA INFORMATION BABY A Placenta Delivery Time : 09/23/2016 08:26 Placenta Method of Delivery: Spontaneous Placenta Status: Delivered SCORES BABY A Heart Rate 1 min: >100 bpm Resp Effort 1 min: Slow, Irregular Reflex Irritability 1 min: Cough or Sneeze or Pulls Away Muscle Tone 1 min: Active Motion Color 1 min: Body [place], Extremities Blue Resuscitation Effort 1 min: N/A SCORE 1 MIN: 8 Heart Rate 5 min: >100 bpm Resp Effort 5 min: Good Cry Reflex Irritability 5 min: Cough or Sneeze or Pulls Away Muscle Tone 5 min: Active Motion Color 5 min: Body [place], Extremities Blue Resuscitation Effort 5 min: N/A SCORE 5 MIN: 9 INFANT INFORMATION BABY A Gestational Age at Delivery: 39.0 Gestational Status: Full Term- 39- 40.6 Weeks Outcome : Liveborn Condition : Stable Infant Sex: Female IDENTIFICATION BABY A Verification Date/Time: 09/23/2016 08:45 ID Band Number: [id number] Mother's Name Verified: Yes Infant RN Verifying : Sendy Morton RNC/L Brennan RN WEIGHT/LENGTH BABY A Infant Birthweight (gm): 3460 Weight (lb): 7 Weight (oz): 10 Infant Length (in): 20.50 Infant Length (cm): 52.07 CORD INFORMATION BABY A No. Cord Vessels: 3 Nuchal Cord : N/A Cord Blood Taken: Yes-For Eval (Mom's Blood Type - or O+) Suction: Mouth ASSESSMENT BABY A Infant Complications: None Physical Findings at Delivery: Caput Succedaneum; Molding of the Head Respirations: Appears Normal Skin to Skin: Yes Skin to Skin: Yes Skin to Skin: Yes Skin to Skin Time (min): 60 Glassware Selector/ALS Called : No Infant Care By: Sendy Morton RN Transferred To: Remains with Mother BABY B INFORMATION : N/A SIGNATURES Assignment: Rubén Rod MD Signature: with User ID: Carrie Signature: with User ID: [email or web address] : with User ID: Carrie : with User ID: Carrie
== END 2016-09-25 14:00 | disposition home or self-care (01) | DRG 775 ==
LOC: LR 15:51 → 2S 09-23 11:33
PROVIDERS: ADMIT Student in an Organized Health Care Education/Training Program; ATTEND Student in an Organized Health Care Education/Training Program
PROC: 4A1HXCZ Monitoring of Products of Conception, Cardiac Rate, External Approach (ICD-10-PCS; 2016-09-22)
PROC: 10E0XZZ Delivery of Products of Conception, External Approach (ICD-10-PCS; principal; 2016-09-23)
PROC: 0UQMXZZ Repair Vulva, External Approach (ICD-10-PCS; 2016-09-23)
PROC: 3E0234Z Introduction of Serum, Toxoid and Vaccine into Muscle, Percutaneous Approach (ICD-10-PCS; 2016-09-25)
DX: O13.4 Gestational [pregnancy-induced] hypertension without significant proteinuria, complicating childbirth (principal); D62 Acute posthemorrhagic anemia; O99.824 Streptococcus B carrier state complicating childbirth; O99.02 Anemia complicating childbirth; O71.82 Other specified trauma to perineum and vulva; Z87.891 Personal history of nicotine dependence; Z3A.39 39 weeks gestation of pregnancy; Z37.0 Single live birth; Z23 Encounter for immunization
CPT/HCPCS: 36415; 80053; 80307; 81005; 82570; 82962; 83615; 84112; 84156; 84550; 85025; 85027; 86592; 86850; 86900; 86901; 90707; 93005; 93010; J1200; J2300; J2370; J2405; J2540; J2590; J3010; J3490

== ENCOUNTER 2016-10-01 17:57 | Inpatient (IN) | payer BC, MEDICAID ==
[2016-10-01] MEDS ORDERED: ACETAMINOPHEN 325 MG TABLET PO PRN (18:59)
[2016-10-01] MEDS ORDERED: HYDRALAZINE HCL INJ/PF 20 MG/1 ML SDV IV ONE ×2 (19:07→21:55)
[2016-10-01] MEDS ORDERED: PROCHLORPERAZINE EDISYLATE INJ 10 MG/2 ML VIAL IV ONE (19:15)
[2016-10-01] MEDS ORDERED: DIPHENHYDRAMINE HCL 50 MG/ML VIAL IV ONE (19:15)
[2016-10-01] MEDS: MAGNESIUM SULFATE/D5W 100 ML IV SCH ×2 (19:50→22:42)
[2016-10-01 19:54] LABS: APPEARANCE,URINE CLEAR; BILIRUBIN,URINE NEGATIVE (NEGATIVE); GLUCOSE, URINE NEGATIVE (NEGATIVE); KETONES,URINE NEGATIVE (NEGATIVE); LEUKOCYTE ESTERASE,URINE LARGE (NEGATIVE); NITRITE,URINE NEGATIVE (NEGATIVE); PROTEIN,URINE NEGATIVE (NEGATIVE); URINE SPECIFIC GRAVITY 1.004; UROBILINOGEN,URINE NEGATIVE mg/dL (<2.0)
[2016-10-01 20:05] LABS: ABSOLUTE EOSINOPHILS # (AUTO) 0.2 10^3/uL (0.0-0.6); ABSOLUTE LYMPHOCYTES (AUTO) 2.5 10^3/uL (0.5-4.7); ABSOLUTE MONOCYTES (AUTO) 0.5 10^3/uL (0.1-1.4); ABSOLUTE NEUT (AUTO) 5.3 10^3/uL (1.7-8.2); BASOPHILS % (AUTO) 0.5 % (0-2); EOSINOPHILS % (AUTO) 2.4 % (0-6); HEMATOCRIT 39.5 % (36.0-47.0); HEMOGLOBIN 13.5 g/dL (12.0-15.5); LYMPHOCYTES % (AUTO) 29.4 % (13-45); MEAN CORPUSCULAR HEMOGLOBIN 29.6 pg (27.0-33.4); MEAN CORPUSCULAR HGB CONC 34.2 g/dL (32.0-36.0); MEAN CORPUSCULAR VOLUME 87 fl (80-97); MONOCYTES % (AUTO) 5.7 % (3-13); RED BLOOD COUNT 4.57 10^6/uL (3.72-5.28); RED CELL DISTRIBUTION WIDTH 14.7 % (11.5-14.0); WHITE BLOOD COUNT 8.6 10^3/uL (4.0-10.5)
[2016-10-01 20:28] LABS: ALANINE AMINOTRANSFERASE 46 U/L (9-52); ALBUMIN 3.7 g/dL (3.5-5.0); ALKALINE PHOSPHATASE 125 U/L (38-126); ANION GAP 12 (5-19); ASPARTATE AMINO TRANSFERASE 31 U/L (14-36); BILIRUBIN,DIRECT 0.4 mg/dL (0.0-0.4); BILIRUBIN,TOTAL 0.6 mg/dL (0.2-1.3); BLOOD UREA NITROGEN 14 mg/dL (7-20); CALCIUM 9.4 mg/dL (8.4-10.2); CARBON DIOXIDE 25 mmol/L (22-30); CHLORIDE 104 mmol/L (98-107); CREATININE RESULT 0.88 mg/dL (0.52-1.25); GLUCOSE 91 mg/dL (75-110); LDH 762 U/L (313-618); POTASSIUM 3.7 mmol/L (3.6-5.0); SODIUM 141.1 mmol/L (137-145); TOTAL PROTEIN 6.5 g/dL (6.3-8.2); URIC ACID 6.1 mg/dL (2.5-6.2)
[2016-10-01] MEDS ORDERED: POTASSIUM CHLORIDE 10 MEQ TABLET.SA PO ONE (21:54)
[2016-10-01] MEDS ORDERED: KETOROLAC TROMETHAMINE INJ/PF 30 MG/1 ML SDV IV ONE (22:12)
[2016-10-01] MEDS ORDERED: ONDANSETRON HCL INJ/PF 4 MG/2 ML SDV IV ONE (22:22)
[2016-10-01] MEDS ORDERED: ONDANSETRON HCL INJ/PF 4 MG/2 ML SDV ONE (22:26)
[2016-10-01] MEDS: POTASSI CL 20 MEQ/50 ML RIDER 50 ML IV SCH ×3 (22:43→22:48)
--- NOTE | 2016-10-01 22:46 | ER Document Report ---
ED Headache - General Mode of Arrival: Ambulatory Information source: Patient TRAVEL OUTSIDE OF THE [place] IN LAST 30 DAYS: No <ALEJANDRO MCCORMACK - Last Filed: 10/01/16 22:51> <MUNA CRABTREE - Last Filed: 10/02/16 00:01> - General Chief Complaint: Headache Stated Complaint: RIGHT SIDE PAIN Time Seen by Provider: 10/01/16 18:59 Notes: Patient is a 30 year old female that presents to the emergency department today with complaints of a headache with associated hypertension. Patient had delivered on 09/23/2016. Patient states her headache is located in the front of her head and it radiates down her neck. Patient states she has tried tylenol and ibuprofen with no relief. Patient denies any nausea, vomiting, or visual disturbances. (ALEJANDRO MCCORMACK) - Related Data Allergies/Adverse Reactions: No Known Allergies Allergy (Verified 09/22/16 17:23) Past Medical History - General Information source: Patient - Social History Smoking Status: Never Smoker Cigarette use (# per day): No Frequency of alcohol use: None Drug Abuse: None Lives with: Family Family History: Reviewed & Not Pertinent Patient has suicidal ideation: No Patient has homicidal ideation: No - Medical History Medical History: Negative Surgical Hx: Negative <ALEJANDRO MCCORMACK - Last Filed: 10/01/16 22:51> Review of Systems - Review of Systems Constitutional: denies: Fever EENT: No symptoms reported Cardiovascular: No symptoms reported Respiratory: No symptoms reported Gastrointestinal: denies: Nausea, Vomiting Genitourinary: No symptoms reported Female Genitourinary: No symptoms reported Musculoskeletal: No symptoms reported Skin: No symptoms reported Hematologic/Lymphatic: No symptoms reported Neurological/Psychological: See HPI, Headaches -: Yes All other systems reviewed and negative <ALEJANDRO MCCORMACK - Last Filed: 10/01/16 22:51> Physical Exam - Vital signs Interpretation: Hypertensive <ALEJANDRO MCCORMACK - Last Filed: 10/01/16 22:51> <MUNA CRABTREE - Last Filed: 10/02/16 00:01> - Vital signs Vitals: Temp Pulse Resp BP Pulse Ox 98.4 F 64 18 216/108 H 98 10/01/16 18:29 10/01/16 18:29 10/01/16 18:29 10/01/16 18:29 10/01/16 18:29 - Notes Notes: Physical Exam: General: Alert, appears uncomfortable. HEENT: Normocephalic. Atraumatic. PERRL. Extraocular movements intact. Oropharynx clear. No facial swelling. Neck: Supple. Non-tender. Respiratory: No respiratory distress. Clear and equal breath sounds bilaterally. Cardiovascular: Regular rate and rhythm. Abdominal: Normal Inspection. Non-tender. No distension. Normal Bowel Sounds. Back: Non-tender. No deformity or step off. Extremities: Moves all four extremities. Upper extremities: Normal inspection. Normal ROM. Lower extremities: Normal inspection. No edema. Normal ROM. Neurological: Normal cognition. AAOx4. Normal speech. Psychological: Normal affect. Normal Mood. Skin: Warm. Dry. Normal color. (ALEJANDRO MCCORMACK) Course - Laboratory Result Diagrams: 10/01/16 19:47 10/01/16 19:47 <ALEJANDRO MCCORMACK - Last Filed: 10/01/16 22:51> - Laboratory Result Diagrams: 10/01/16 19:47 10/01/16 19:47 <MUNA CRABTREE - Last Filed: 10/02/16 00:01> - Re-evaluation Re-evalutation: 10/01 Patient is a 30-year-old female who presents with headache and high blood pressure of 200s over 100s. Patient has an elevated lactate dehydrogenase. Patient has been given magnesium, headache medications, and hydralazine IV. Patient is feeling somewhat better but is still nauseated and still has slight headache. Patient has been discussed with Dr. Mina with [facility]. Patient will be kept in the hospital overnight. Understands and agrees with plan. Vitals are improved at the time of admission. Patient is continuing to receive IV hydralazine as needed. (MUNA CRABTREE) - Vital Signs Vital signs: Temp Pulse Resp BP Pulse Ox 98.4 F 64 24 H 189/106 H 97 10/01/16 18:29 10/01/16 18:29 10/01/16 21:46 10/01/16 21:46 10/01/16 21:46 - Laboratory Laboratory results interpreted by me: 08/09/17 08/09/17 08/09/17 19:15 19:47 19:47 RDW 14.7 H Lactate Dehydrogenase 762 H Urine Blood LARGE H Ur Leukocyte Esterase LARGE H Critical Care Note - Critical Care Note Total time excluding time spent on procedures (mins): 35 - Evaluation and management of probable preeclampsia in a patient, management of blood pressure, multiple re-evaluations, coordination of admission, consultation with specialist, counseling of patient and family <MUNA CRABTREE - Last Filed: 10/02/16 00:01> Discharge <ALEJANDRO MCCORMACK - Last Filed: 10/01/16 22:51> - Discharge Admitting Provider: [facility] Unit Admitted: Post <MUNA CRABTREE - Last Filed: 10/02/16 00:01> - Discharge Clinical Impression: Headache in , , Hypertension Condition: Stable Disposition: ADMITTED INPATIENT Scribe Attestation: 10/02/16 00:01 I personally performed the services described in the documentation, reviewed and edited the documentation which was dictated to the scribe in my presence, and it accurately records my words and actions. (MUNA CRABTREE) Scribe Documentation - Scribe Written by Nereida:: Nereida Cano, 10/01/2016 2251 acting as scribe for :: Miracle <ALEJANDRO MCCORMACK - Last Filed: 10/01/16 22:51>
--- NOTE | 2016-10-02 01:46 | Delivery Summary ---
Del Sum A-C Datetime Report Generated by CPN: 10/02/2016 01:46 DELIVERY PERSONNEL DELIVERY PERSONNEL: [id number];[id number];[id number];[id number] Delivery Doctor:: Katrin Reed CNM Nurse Parts Cataloguer Certified:: Katrin Reed CNM Labor and Delivery Nurse:: Charisma Ortiz RN Labor and Delivery Nurse:: ABRAHAN Stokes Photography Colorist/ELKIN: Latasha Haddad CNA II MATERNAL INFORMATION Delivery Anesthesia: Epidural Medications After Delivery: Pitocin Drip 20 Units/1000ml NSS Estimated Blood Loss (ml): 250 Maternal Complications: None Provider Comments: of viable female over intact perineum. Head, shoulder, and body delivered without difficulty. with spontaneous cry and respirations, to maternal abdomen, cord clamped X2, cut free after 2 min delay. Spontaneous delivery of placenta, via garcia mechanism. appears intact, 3 VC. Laceration repaired as above, hemostasis acheived with external fundal massage and IV pitocin, mother and infant in stable condition, routine pp care LABOR SUMMARY EDC: 09/30/2016 00:00 No. Babies in Womb: 1 Attempted: No Labor Anesthesia: Epidural LABOR INFORMATION Reason for Induction: Gestational Hypertension Onset of Labor: 09/22/2016 19:00 Complete Dilatation: 09/23/2016 07:54 Cervical Ripening Agents: Cervidil Oxytocin: Augmentation Group B Beta Strep: POSITIVE Antibiotics # of Doses: 4 Antibiotics Time of Last Dose: 734 Name of Antibiotic Given: Penicillin Steroids Given: None Reason Steroids Not Administered: Not Applicable MEMBRANES Membranes Rupture Method: Spontaneous Rupture of Membranes: 09/22/2016 19:34 Length of Rupture (hr): 12.82 Amniotic Fluid Color: Clear Amniotic Fluid Amount: Small Amniotic Fluid Odor: Normal STAGES OF LABOR Stage 1 hr: 12 Stage 1 min: 54 Stage 2 hr: 0 Stage 2 min: 29 Stage 3 hr: 0 Stage 3 min: 3 Total Time in Labor hr: 13 Total Time in Labor min: 26 VAGINAL DELIVERY Episiotomy: None Laceration Extension: First Degree Laceration Type: Periurethral Laceration Repair: Yes Laceration Repair Note: Reaired with 3-0 chromic, 3 single sutures Sponge Count Correct: N/A Sharps Count Correct: N/A CSECTION DELIVERY Primary Indication: N/A Secondary Indication: N/A CSection Incidence: N/A Labor: N/A Elective: N/A CSection Incision: N/A BABY A INFORMATION Infant Delivery Date/Time: 09/23/2016 08:23 Method of Delivery: Vaginal Born in Route : No : N/A Forceps: N/A Vacuum Extraction: N/A Shoulder Dystocia : No PRESENTATION/POSITION BABY A Presentation: Cephalic Cephalic Presentation: Vertex Vertex Position: Right Occipital Anterior Breech Presentation: N/A PLACENTA INFORMATION BABY A Placenta Delivery Time : 09/23/2016 08:26 Placenta Method of Delivery: Spontaneous Placenta Status: Delivered SCORES BABY A Heart Rate 1 min: >100 bpm Resp Effort 1 min: Slow, Irregular Reflex Irritability 1 min: Cough or Sneeze or Pulls Away Muscle Tone 1 min: Active Motion Color 1 min: Body [place], Extremities Blue Resuscitation Effort 1 min: N/A SCORE 1 MIN: 8 Heart Rate 5 min: >100 bpm Resp Effort 5 min: Good Cry Reflex Irritability 5 min: Cough or Sneeze or Pulls Away Muscle Tone 5 min: Active Motion Color 5 min: Body [place], Extremities Blue Resuscitation Effort 5 min: N/A SCORE 5 MIN: 9 INFORMATION BABY A Gestational Age at Delivery: 39.0 Gestational Status: Full Term- 39- 40.6 Weeks Infant Outcome : Liveborn Infant Condition : Stable Infant Sex: Female IDENTIFICATION BABY A Infant Verification Date/Time: 09/23/2016 08:45 ID Band Number: [id number] Mother's Name Verified: Yes RN Verifying Infant: K Praveen RNC/L Roulund RN WEIGHT/LENGTH BABY A Birthweight (gm): 3460 Weight (lb): 7 Infant Weight (oz): 10 Length (in): 20.50 Length (cm): 52.07 CORD INFORMATION BABY A No. Cord Vessels: 3 Nuchal Cord : N/A Cord Blood Taken: Yes-For Eval (Mom's Blood Type - or O+) Suction: Mouth ASSESSMENT BABY A Infant Complications: None Physical Findings at Delivery: Caput Succedaneum; Molding of the Head Infant Respirations: Appears Normal Skin to Skin: Yes Skin to Skin Time (min): 60 Bush Regenerator/ALS Called : No Care By: K Praveen RN Transferred To: Remains with Mother BABY B INFORMATION : N/A SIGNATURES Assignment: Rubén Rod MD Signature: with User ID: Carrie : with User ID: Carrie
[2016-10-02] MEDS ORDERED: RINGERS SOLUTION,LACTATED 1,000 ML IV PRN (02:27)
[2016-10-02] MEDS: MAGNESIUM SULFATE 20 GM/500 ML RTUINJ IV PRN ×2 (03:06→10:17)
[2016-10-02] MEDS ORDERED: ACETAMINOPHEN WITH CODEINE #3 TABLET ONE (03:26)
[2016-10-02] MEDS ORDERED: HYDRALAZINE HCL INJ/PF 20 MG/1 ML SDV ONE (03:26)
[2016-10-02] MEDS ORDERED: ACETAMINOPHEN WITH CODEINE #3 TABLET PO ONE (03:35)
[2016-10-02] MEDS ORDERED: HYDRALAZINE HCL INJ/PF 20 MG/1 ML SDV IV ONE ×2 (03:35→04:25)
[2016-10-02] MEDS ORDERED: BUTALB/ACETAMINOPHEN/CAFFEINE 1 TAB EACH PO ONE (06:47)
[2016-10-02] MEDS ORDERED: BUTALB/ACETAMINOPHEN/CAFFEINE 1 TAB EACH ONE ×2 (06:50→16:29)
[2016-10-02 07:34] LABS: ABSOLUTE EOSINOPHILS # (AUTO) 0.1 10^3/uL (0.0-0.6); ABSOLUTE LYMPHOCYTES (AUTO) 1.7 10^3/uL (0.5-4.7); ABSOLUTE MONOCYTES (AUTO) 0.5 10^3/uL (0.1-1.4); ABSOLUTE NEUT (AUTO) 6.9 10^3/uL (1.7-8.2); BASOPHILS % (AUTO) 0.3 % (0-2); EOSINOPHILS % (AUTO) 0.9 % (0-6); HEMATOCRIT 37.9 % (36.0-47.0); HGB HCT DIFFERENCE 1.1; LYMPHOCYTES % (AUTO) 18.1 % (13-45); MEAN CORPUSCULAR HEMOGLOBIN 29.8 pg (27.0-33.4); MEAN CORPUSCULAR HGB CONC 34.4 g/dL (32.0-36.0); MEAN CORPUSCULAR VOLUME 87 fl (80-97); MONOCYTES % (AUTO) 5.6 % (3-13); RED BLOOD COUNT 4.37 10^6/uL (3.72-5.28); RED CELL DISTRIBUTION WIDTH 14.6 % (11.5-14.0); SEGMENTED NEUTROPHILS % (AUTO) 75.1 % (42-78); WHITE BLOOD COUNT 9.2 10^3/uL (4.0-10.5)
[2016-10-02 07:49] LABS: ALANINE AMINOTRANSFERASE 37 U/L (9-52); ALBUMIN 3.6 g/dL (3.5-5.0); ALKALINE PHOSPHATASE 131 U/L (38-126); ANION GAP 12 (5-19); ASPARTATE AMINO TRANSFERASE 29 U/L (14-36); BILIRUBIN,DIRECT 0.5 mg/dL (0.0-0.4); BILIRUBIN,TOTAL 0.6 mg/dL (0.2-1.3); BLOOD UREA NITROGEN 13 mg/dL (7-20); CALCIUM 8.3 mg/dL (8.4-10.2); CARBON DIOXIDE 24 mmol/L (22-30); CHLORIDE 103 mmol/L (98-107); CREATININE RESULT 0.77 mg/dL (0.52-1.25); GLUCOSE 114 mg/dL (75-110); LDH 712 U/L (313-618); POTASSIUM 3.3 mmol/L (3.6-5.0); TOTAL PROTEIN 6.5 g/dL (6.3-8.2); URIC ACID 6.5 mg/dL (2.5-6.2)
[2016-10-02] MEDS ORDERED: HYDROMORPHONE HCL INJ/PF 2 MG/ML AMPULE IV PRN (09:11)
[2016-10-02] MEDS ORDERED: HYDROMORPHONE HCL INJ/PF 2 MG/ML AMPULE ONE ×2 (09:13→09:30)
[2016-10-02] MEDS ORDERED: CYCLOBENZAPRINE HCL 10 MG TABLET ONE (09:51)
[2016-10-02] MEDS ORDERED: ONDANSETRON HCL INJ/PF 4 MG/2 ML SDV IV ONE (10:12)
[2016-10-02] MEDS ORDERED: ONDANSETRON HCL INJ/PF 4 MG/2 ML SDV ONE ×2 (10:13→16:48)
--- NOTE | 2016-10-02 10:41 | RADIOLOGY REPORT (SQ) ---
EXAM DESCRIPTION: CT HEAD WITHOUT COMPLETED DATE/TIME: 10/02/2016 10:30 am REASON FOR STUDY: 30yo female 7 days pp with intractable leos, pre-e COMPARISON: None. TECHNIQUE: Axial images acquired through the brain without intravenous contrast. Images reviewed wi th bone, brain and subdural windows. Images stored on PACS. All CT scanners at this facility use dose modulation, iterative reconstruction, and/or weight based d osing when appropriate to reduce radiation dose to as low as reasonably achievable (ALARA). [facility]: Dose Right [facility]: CareDose [facility]: Dose Right [facility]: Teradose 4D [facility]: Yamsafer RADIATION DOSE: Up-to-date CT equipment and radiation dose reduction techniques were employed. CTDIv ol: 49.0 mGy. DLP: 783 mGy-cm. mGy. LIMITATIONS: None. FINDINGS: VENTRICLES: Normal size and contour. CEREBRUM: No masses. No hemorrhage. No midline shift. Normal mayen/white matter differentiation. N o evidence for acute infarction. CEREBELLUM: No masses. No hemorrhage. No alteration of density. No evidence for acute infarction. EXTRAAXIAL SPACES: No fluid collections. No masses. ORBITS AND GLOBE: No intra- or extraconal masses. Normal contour of globe without masses. CALVARIUM: No fracture. PARANASAL SINUSES: No fluid or mucosal thickening. SOFT TISSUES: No mass or hematoma. OTHER: No other significant finding. IMPRESSION: NORMAL BRAIN CT WITHOUT CONTRAST. TECHNICAL DOCUMENTATION: JOB ID: [id number] Quality ID # [id number]: Final reports with documentation of one or more dose reduction techniques (e.g., Au tomated exposure control, adjustment of the mA and/or kV according to patient size, use of iterative reconstruction technique) 2010 [employer]- All Rights Reserved
--- NOTE | 2016-10-02 15:45 | L&D Progress Notes ---
PROGRESS NOTES Datetime Report Generated by CPN: 10/02/2016 15:45 PROGRESS NOTE Impression: Gest. HTN/PreEclampsia/Eclampsia Plan: Continue Present Management Vital Signs : Reviewed Comment: Pt admitted for severe range BPs and pp PreE. Currently on Magnesium. S/w pt earlier this am and concern for post dural puncture TERAN. Dr. Sainz notified. CT scan ordered and Blood patch done and pt doing much better. BPs much improved. Continue to monitor plan for continued magnesium until approx 0200 in the am and then if stable then procardia pp. SIGNATURE SIGNATURE: 13,[id number];10,[id number];14,[id number];15,[id number] SIGNATURE: 15,[id number];14,[id number];10,[id number];13,[id number] SIGNATURE: 13,[id number];10,[id number];14,[id number] Signature: Electronically signed by Rebecca Garcia MD ([facility]) on 10/02/2016 at 15:45 with User ID: [email or web address]
[2016-10-02] MEDS ORDERED: NALBUPHINE HCL INJ 10 MG/1 ML AMPULE ONE (16:48)
[2016-10-02] MEDS ORDERED: FAMOTIDINE INJ/PF 20 MG/2 ML SDV IV ONE (17:08)
[2016-10-02] MEDS ORDERED: METOCLOPRAMIDE HCL INJ/PF 10 MG/2 ML SDV ONE (18:25)
[2016-10-02] MEDS ORDERED: METOCLOPRAMIDE HCL INJ/PF 10 MG/2 ML SDV IV ONE (18:28)
[2016-10-02] MEDS ORDERED: FAMOTIDINE INJ/PF 20 MG/2 ML SDV IV SCH (22:00)
[2016-10-03] MEDS ORDERED: NIFEDIPINE 30 MG TAB.ER.24 PO ONE ×4 (03:29→08:30)
--- NOTE | 2016-10-03 03:51 | L&D Progress Notes ---
PROGRESS NOTES Datetime Report Generated by CPN: 10/03/2016 03:51 PROGRESS NOTE Impression: Gest. HTN/PreEclampsia/Eclampsia Plan: Continue Present Management Informed Consent Obtained: Risks, Benefits and Alternatives Discussed Comment: UOP doing well - good diuresis. Magnesium discontinued. Plan to start Procardia 30mg XL (poor response to 30mg) - will increase to 60mg Procardia XL daily. When BPs under improved control off magnesium will transfer to the floor for continued monitoring. FETUS C SIGNATURE: 15,[id number];14,[id number];10,[id number];13,[id number] Signature: with User ID: [email or web address]
[2016-10-03] MEDS ORDERED: ONDANSETRON HCL 8 MG TABLET PO PRN (04:48)
[2016-10-03 06:30] LABS: ABSOLUTE EOSINOPHILS # (AUTO) 0.1 10^3/uL (0.0-0.6); ABSOLUTE LYMPHOCYTES (AUTO) 1.7 10^3/uL (0.5-4.7); ABSOLUTE MONOCYTES (AUTO) 0.3 10^3/uL (0.1-1.4); BASOPHILS % (AUTO) 0.3 % (0-2); EOSINOPHILS % (AUTO) 0.9 % (0-6); HEMATOCRIT 38.4 % (36.0-47.0); HEMOGLOBIN 13.1 g/dL (12.0-15.5); HGB HCT DIFFERENCE 0.9; LYMPHOCYTES % (AUTO) 18.2 % (13-45); MEAN CORPUSCULAR HEMOGLOBIN 29.8 pg (27.0-33.4); MEAN CORPUSCULAR VOLUME 88 fl (80-97); MONOCYTES % (AUTO) 3.7 % (3-13); RED BLOOD COUNT 4.38 10^6/uL (3.72-5.28); RED CELL DISTRIBUTION WIDTH 14.8 % (11.5-14.0); SEGMENTED NEUTROPHILS % (AUTO) 76.9 % (42-78); WHITE BLOOD COUNT 9.2 10^3/uL (4.0-10.5)
[2016-10-03 06:48] LABS: ALANINE AMINOTRANSFERASE 35 U/L (9-52); ALBUMIN 3.5 g/dL (3.5-5.0); ALKALINE PHOSPHATASE 127 U/L (38-126); ANION GAP 11 (5-19); ASPARTATE AMINO TRANSFERASE 33 U/L (14-36); BILIRUBIN,DIRECT 0.4 mg/dL (0.0-0.4); BILIRUBIN,TOTAL 0.7 mg/dL (0.2-1.3); BLOOD UREA NITROGEN 13 mg/dL (7-20); CALCIUM 7.4 mg/dL (8.4-10.2); CARBON DIOXIDE 28 mmol/L (22-30); CHLORIDE 103 mmol/L (98-107); CREATININE RESULT 0.99 mg/dL (0.52-1.25); GLUCOSE 90 mg/dL (75-110); LDH 712 U/L (313-618); POTASSIUM 3.6 mmol/L (3.6-5.0); SODIUM 141.7 mmol/L (137-145); TOTAL PROTEIN 6.4 g/dL (6.3-8.2)
[2016-10-03] MEDS ORDERED: CYCLOBENZAPRINE HCL 10 MG TABLET ONE ×2 (07:46→15:59)
[2016-10-03] MEDS: CYCLOBENZAPRINE HCL 10 MG TABLET PO PRN ×2 (07:51→15:58)
--- NOTE | 2016-10-03 12:08 | Admission Physical ---
Datetime Report Generated by CPN: 10/03/2016 12:08 CURRENT ADMISSION Chief Complaint: Other Chief Complaint: Scheduled Induction of Labor Chief Complaint Other: [presented to ER last evening with c/o headache and blurry vision. BPs found to be 200/100s. Indication for Induction: Gestational HTN Admit Plan: Observation/Evaluation Admit Plan: Admit to Unit; Initiate Labor Induction Protocol Admit Plan- Other: PreEclampsia ALLERGIES Medication Allergies: No Medication Allergies: No Known Allergies (09/22/2016) Medication Allergies: No Known Allergies (09/18/2016) Medication Allergies: No Known Allergies (09/01/2016) Latex: No Latex Allergies Food Allergies: none Environmental Allergies: none OBSTETRICAL HISTORY EDC: 09/30/2016 00:00 : 3 Para: 2 Term: 2 : 0 SAB: 0 IAB: 0 Ectopic: 0 Livin Cesareans: 0 VBACs: 0 Multiple Births: 0 Gestational Diabetes: No Rh Sensitization: No Incompetent Cervix: No VAUGHN: No Infertility: No ART Treatment: No Uterine Anomaly: No IUGR: No Hx Previous C/S: No Macrosomia: No Hx Loss/Stillborn: No PIH: Yes Hx : No Placenta Previa/Abruption: No Depression/PP Depression: No PTL/PROM: No Post Hemorrhage: No Current Procedures: Ultrasound Obstetrical History Comments: G1 08/2002 40 weeks 3 days Vaginal Delivery G2 - 04/2008 38 weeks PIH Vaginal Delivery G3 - Current SEE RECORDS Alcohol: No Marijuana : No Cocaine: No Other Illicit Drugs: No Cigarettes: Former Smoker. [id number] MEDICAL HISTORY Diabetes: No Blood Transfusion: No Pulmonary Disease (Asthma, TB): No Breast Disease: No Hypertension: No Grader Meat Surgery: No Heart Disease: No Hosp/Surgery: Yes Autoimmune Disorder: No Anesthetic Complications: No Kidney Disease: No Abnormal Pap Smear: No Neuro/Epilepsy: No Psychiatric Disorders: No Other Medical Diseases: No Hepatitis/Liver Disease: No Significant Family History: No Varicosities/Phlebitis: No Trauma/Violence : No Thyroid Dysfunction: No Medical History Comments: CHILDBIRTH INFECTIOUS HISTORY Gonorrhea: No Genital Herpes: No Chlamydia: Yes Tuberculosis: No Syphilis: No Hepatitis: No HIV/AIDS Exposure: No Rash or Viral Illness: No HPV: No Infectious History Comments: 2009 - Chlamydia (Unsure) PHYSICAL EXAM General: Normal General: Normal HEENT: Normal HEENT: Normal Neurologic: Normal Neurologic: Normal Thyroid: Normal Thyroid: Normal Heart: Normal Heart: Normal Lungs: Normal Lungs: Normal Breast: Normal Breast: Deferred Back: Normal Back: Normal Abdomen: Normal Abdomen: Normal Genitourinary Exam: Normal Genitourinary Exam: Normal Extremities: Abnormal Extremities: Normal DTRs: Normal DTRs: Normal Pelvic Type: Adequate Pelvic Type: Adequate Physical Exam Comments: +1 Pitting edema Physical Exam Comments: pelvis proven to 7# Vital Signs: Reviewed Vital Signs: Reviewed Details Vital Signs: severe range BPs Details Vital Signs: mild range BPs VAGINAL EXAM Dilatation: AL Dilatation: 1 Dilatation: 1 Effacement: 100 Effacement: 25 Effacement: 25 Station: 1 Station: -3 Station: -3 Contraction Comments: q2-4 MEMBRANES Pooling: Positive Membranes: Ruptured Membranes: Ruptured Membranes: Intact Amniotic Fluid Color: Clear Amniotic Fluid Color: Clear FETUS A EGA: 40.2 EGA: 38.6 Monitoring: External US FHR- Baseline: 130 Variability: Moderate 6-25bpm Accelerations: 15X15 Decelerations: None FHR Category: Category I Presentation: Vertex Admit Comment: readmission for PP Magnesium Sulfate secondary to severe PreE. Hydralazine as needed to control severe range pressures. After Mag course completed, start Procardia for further BP control Admit Comment: 30yo at 38+6ega seen in L_D last week for elevated BPs. Protein: Creatinine ratio was 0.4 but o/w labs normal. TOday P:C ration is 0.3 and o/w labs normal. H/o preE with prior . Abnormal 1 hr GTT/ normal 3 hr GTT. Rubella NI. GBS pos - PCN for prophy once cervidil is removed. Due to unfavorable cervix will begin cervical ripening with cervidil then re-eval for needs of cervical ripening continuation versus pitocin. Severe range BPs in the office. TERAN today. Will treat for TERAN. PLANS FOR LABOR AND DELIVERY Labor and Delivery: None Pain Management: Epidural Feeding Preference: Formula Benefit of Breast Feed Discussed: Yes Circumcision: N/A INFORMED CONSENT Informed Consent Obtained: Risks, Benefits and Alternatives Discussed Informed Consent Obtained: Vaginal Delivery; Risks, Benefits and Alternatives Discussed Informed Consent Obtained: Vaginal Delivery; Risks, Benefits and Alternatives Discussed Informed Consent Obtained: Vaginal Delivery; Induction of Labor; Risks, Benefits and Alternatives Discussed Signature: with User ID: Celia Signature: with User ID: Skyler : with User ID: Skyler
[2016-10-03] MEDS: FAMOTIDINE 20 MG TABLET PO SCH ×2 (12:32→23:00)
[2016-10-03] MEDS: BUTALB/ACETAMINOPHEN/CAFFEINE 1 TAB EACH PO PRN ×3 (12:57→23:02)
[2016-10-04] MEDS: BUTALB/ACETAMINOPHEN/CAFFEINE 1 TAB EACH PO PRN (04:20)
[2016-10-04] MEDS: CYCLOBENZAPRINE HCL 10 MG TABLET PO PRN (07:23)
[2016-10-04] MEDS ORDERED: OXYCODONE-ACETAMINOPHEN 5-325 MG TABLET PO PRN (08:19)
[2016-10-04] MEDS ORDERED: OXYCODONE-ACETAMINOPHEN 5-325 MG TABLET ONE (08:24)
[2016-10-04 09:29] VITALS: BP 143/88
[2016-10-04] MEDS: FAMOTIDINE 20 MG TABLET PO SCH (09:51)
--- NOTE | 2016-10-04 09:58 | PDOC DISCHARGE SUMMARY ---
General - Admit/Disc Date/PCP Admission Date/Primary Care Provider: 10/02/16 01:20 Discharge Date: 10/04/16 - Discharge Diagnosis (1) Headache in , Is this a current diagnosis for this admission?: Yes - Additional Information Resuscitation Status: Full Code Home Medications: Esomeprazole Magnesium [Nexium 24Hr] 20 mg PO DAILY 09/01/16 Ferrous Sulfate [Iron] 1 tab PO DAILY 09/01/16 Cmb#95/Iron/FA/Dha [ + Dha Combo Pack] 1 tab PO DAILY 09/01/16 Ibuprofen [Motrin 800 mg Tablet] 800 mg PO Q8 #90 tablet 09/25/16 History of Present Illness Patient complains of: The patient presented to the ER with hypertension and headache . History of Present Illness: JULIO FONSECA is a 30 year old female Hospital Course Hospital Course: Patient underwent a CT scan which was normal she also had a blood patch. She was given Procardia to control her blood pressure. She has been given Percocet which is helped her headache. She now feels ready to go home in good condition. Physical Exam - Physical Exam Vital Signs: Temp Pulse Resp BP Pulse Ox 98.9 F 55 L 16 143/88 H 100 10/04/16 08:06 10/04/16 08:06 10/04/16 08:06 10/04/16 08:06 10/04/16 08:06 General appearance: PRESENT: no acute distress, well-developed, well-nourished Result Laboratory Results: 10/03/16 06:23 10/03/16 06:23 Impressions: Head CT 10/02/16 08:53 IMPRESSION: NORMAL BRAIN CT WITHOUT CONTRAST. Plan Discharge Plan: Plan to discharge home on Procardia and Percocet. Follow-up in the office later this week as planned. Condition on discharge is good.
[2016-10-04] MEDS ORDERED: NIFEDIPINE 30 MG TAB.ER.24 PO SCH (10:00)
--- NOTE | 2016-10-21 14:20 | DISCHARGE SUMMARY E ---
Discharge Summary NAME: JULIO FONSECA : 1985 AGE: 30Y ADMITTED: 10/02/2016 DISCHARGED: 10/04/2016 ADDENDUM: This is Dr. Rubén Rod dictating in response to the query on the patient regarding headache. I would use the diagnosis of headache associated with hypertension. DICTATING PHYSICIAN: RUBÉN ROD M.D. [id number] PHY#: [id number] ID: [id number] JOB#: [id number] ACCT: [id number] cc:RUBÉN ROD M.D. >
== END 2016-10-04 10:43 | disposition home or self-care (01) | DRG 776 ==
LOC: ER 17:57 → EH 23:24 → UNDOADMIN 23:24 → EH 10-02 01:20 → LR 10-02 02:11 → EH 10-02 02:11 → 2S 10-03 12:08
PROVIDERS: ADMIT Obstetrics & Gynecology; ATTEND Obstetrics & Gynecology
PROC: 3E0R3GC Introduction of Other Therapeutic Substance into Spinal Canal, Percutaneous Approach (ICD-10-PCS; principal; 2016-10-02)
DX: O14.15 Severe pre-eclampsia, complicating the puerperium (principal); Z87.891 Personal history of nicotine dependence
CPT/HCPCS: 36415; 70450; 80053; 81001; 83615; 84550; 85025; 96365; 96366; 96375; 99291; J0360; J0780; J1170; J1200; J1885; J2300; J2405; J2765; J3475; J3490; S0028

== ENCOUNTER 2019-01-19 08:38 | Outpatient (CLI) | payer BC ==
[2019-01-19 09:28] LABS: ABSOLUTE EOSINOPHILS # (AUTO) 0.1 10^3/uL (0.0-0.6); ABSOLUTE MONOCYTES (AUTO) 0.6 10^3/uL (0.1-1.4); ABSOLUTE NEUT (AUTO) 7.4 10^3/uL (1.7-8.2); BASOPHILS % (AUTO) 0.3 % (0-2); EOSINOPHILS % (AUTO) 0.9 % (0-6); HEMATOCRIT 35.1 % (36.0-47.0); HEMOGLOBIN 12.1 g/dL (12.0-15.5); LYMPHOCYTES % (AUTO) 20.1 % (13-45); MEAN CORPUSCULAR HEMOGLOBIN 30.4 pg (27.0-33.4); MEAN CORPUSCULAR HGB CONC 34.6 g/dL (32.0-36.0); MEAN CORPUSCULAR VOLUME 88 fl (80-97); MONOCYTES % (AUTO) 5.7 % (3-13); PLATELET COUNT 230 10^3/uL (150-450); RED BLOOD COUNT 3.99 10^6/uL (3.72-5.28); RED CELL DISTRIBUTION WIDTH 14.3 % (11.5-14.0); TOTAL CELLS COUNTED % (AUTO) 100 %; WHITE BLOOD COUNT 10.1 10^3/uL (4.0-10.5)
[2019-01-19 09:48] LABS: APPEARANCE,URINE SLIGHTLY-CLOUDY; BILIRUBIN,URINE NEGATIVE (NEGATIVE); COLOR,URINE YELLOW; GLUCOSE, URINE NEGATIVE (NEGATIVE); KETONES,URINE NEGATIVE (NEGATIVE); LEUKOCYTE ESTERASE,URINE LARGE (NEGATIVE); NITRITE,URINE NEGATIVE (NEGATIVE); PROTEIN,URINE NEGATIVE (NEGATIVE); URINE SPECIFIC GRAVITY 1.004; UROBILINOGEN,URINE NEGATIVE mg/dL (<2.0)
[2019-01-19 09:49] LABS: ALBUMIN 3.4 g/dL (3.5-5.0); ALKALINE PHOSPHATASE 124 U/L (38-126); ANION GAP 10 (5-19); ASPARTATE AMINO TRANSFERASE 16 U/L (14-36); BILIRUBIN,DIRECT 0.1 mg/dL (0.0-0.4); BILIRUBIN,TOTAL 0.5 mg/dL (0.2-1.3); BLOOD UREA NITROGEN 5 mg/dL (7-20); CALCIUM 10.4 mg/dL (8.4-10.2); CARBON DIOXIDE 22 mmol/L (22-30); CHLORIDE 105 mmol/L (98-107); GLUCOSE 74 mg/dL (75-110); POTASSIUM 4.2 mmol/L (3.6-5.0); TOTAL PROTEIN 6.1 g/dL (6.3-8.2); URIC ACID 5.2 mg/dL (2.5-7.0)
--- NOTE | 2019-01-19 09:56 | Non Stress Test Report ---
Non Stress Test Datetime Report Generated by CPN: 01/19/2019 09:56 DEMOGRAPHIC EGA NST: 35.5 MONITORING Monitor Explained: Monitor Explained; Test Explained; Patient Verbalized Understanding Time on Monitor: 01/19/2019 08:55 Time off Monitor: 01/19/2019 09:23 NST Duration: 28 NST INTERVENTIONS NST Interventions: None Physician Notified NST: Dr Leopoldo BABY A: [id number] BABY A Movement : Present Contraction Frequency : irregular FHR Baseline : 145 Accelerations : 15X15 Decelerations : None Variability : Moderate 6-25bpm NST Review: Meets Criteria for Reactive NST NST Review and Verified By : C. Cromwell, RN NST Results: Reactive NST COMMENTS NST Comments: MD on unit NST REPORT Report Trigger: Send Report (Annotations: Data stored by [facility] on behalf of user)
[2019-01-19 10:04] LABS: URINE AMPHETAMINES SCREEN NEGATIVE; URINE BARBITURATES SCREEN NEGATIVE; URINE BENZODIAZEPINES SCREEN NEGATIVE; URINE COCAINE SCREEN NEGATIVE; URINE MARIJUANA (THC) SCREEN NEGATIVE; URINE METHADONE SCREEN NEGATIVE; URINE PHENCYCLIDINE SCREEN NEGATIVE
[2019-01-19 10:09] LABS: UR PRO/CREAT RATIO RESULT 0.5 mg/mg (0.0-0.2); URINE CREATININE 35.4 mg/dL (16-327); URINE PROTEIN 16.6 mg/dL (<12)
== END 2019-01-19 10:13 | disposition home or self-care (01) ==
LOC: LC 08:38
PROVIDERS: ATTEND Obstetrics & Gynecology
PROC: 4A1HXCZ Monitoring of Products of Conception, Cardiac Rate, External Approach (ICD-10-PCS; principal; 2019-01-19)
DX: O09.523 Supervision of elderly multigravida, third trimester (principal); Z3A.35 35 weeks gestation of pregnancy
CPT/HCPCS: 36415; 59025; 80053; 80307; 81001; 82570; 83615; 84156; 84550; 85025

== ENCOUNTER 2019-01-30 18:16 | Inpatient (IN) | payer BC ==
[2019-01-30] MEDS ORDERED: OXYTOCIN/NORMAL SALINE 20 UNIT/1,000 ML RTUINJ IV PRN (18:25)
[2019-01-30] MEDS ORDERED: DINOPROSTONE 10 MG VAGINAL INSERT.SR PV PRN (18:25)
[2019-01-30] MEDS ORDERED: RINGERS SOLUTION,LACTATED 300 ML IV ONE (18:25)
[2019-01-30] MEDS ORDERED: OXYTOCIN 10 UNIT/ML VIAL ONE (18:27)
[2019-01-30] MEDS ORDERED: MISOPROSTOL 0.2 MG TABLET ONE (18:27)
[2019-01-30] MEDS ORDERED: OXYTOCIN/NORMAL SALINE 20 UNIT/1,000 ML RTUINJ ONE (18:28)
[2019-01-30] MEDS ORDERED: LIDOCAINE 1% INJ-PF (10 MG/ML) 30 ML SDV ONE (18:28)
[2019-01-30] MEDS ORDERED: DINOPROSTONE 10 MG VAGINAL INSERT.SR ONE (18:28)
[2019-01-30 18:58] LABS: APPEARANCE,URINE SLIGHTLY-CLOUDY; BILIRUBIN,URINE NEGATIVE (NEGATIVE); COLOR,URINE YELLOW; GLUCOSE, URINE NEGATIVE (NEGATIVE); KETONES,URINE TRACE mg/dL (NEGATIVE); LEUKOCYTE ESTERASE,URINE LARGE (NEGATIVE); NITRITE,URINE NEGATIVE (NEGATIVE); PROTEIN,URINE NEGATIVE (NEGATIVE); URINE SPECIFIC GRAVITY 1.005; UROBILINOGEN,URINE NEGATIVE mg/dL (<2.0)
[2019-01-30 19:15] LABS: URINE AMPHETAMINES SCREEN NEGATIVE; URINE BARBITURATES SCREEN NEGATIVE; URINE BENZODIAZEPINES SCREEN NEGATIVE; URINE COCAINE SCREEN NEGATIVE; URINE MARIJUANA (THC) SCREEN NEGATIVE; URINE METHADONE SCREEN NEGATIVE; URINE PHENCYCLIDINE SCREEN NEGATIVE
[2019-01-30] MEDS ORDERED: PENICILLIN G POTASSIUM 5,000,000 UNIT in DEXTROSE 5%-WATER 100 ML IV ONE (19:15)
[2019-01-30 19:25] LABS: ABSOLUTE EOSINOPHILS # (AUTO) 0.2 10^3/uL (0.0-0.6); ABSOLUTE LYMPHOCYTES (AUTO) 2.5 10^3/uL (0.5-4.7); ABSOLUTE MONOCYTES (AUTO) 0.6 10^3/uL (0.1-1.4); ABSOLUTE NEUT (AUTO) 7.8 10^3/uL (1.7-8.2); BASOPHILS % (AUTO) 0.2 % (0-2); EOSINOPHILS % (AUTO) 1.8 % (0-6); HEMOGLOBIN 11.9 g/dL (12.0-15.5); LYMPHOCYTES % (AUTO) 22.5 % (13-45); MEAN CORPUSCULAR HEMOGLOBIN 30.2 pg (27.0-33.4); MEAN CORPUSCULAR VOLUME 86 fl (80-97); MONOCYTES % (AUTO) 5.7 % (3-13); PLATELET COUNT 267 10^3/uL (150-450); RED BLOOD COUNT 3.94 10^6/uL (3.72-5.28); RED CELL DISTRIBUTION WIDTH 14.2 % (11.5-14.0); SEGMENTED NEUTROPHILS % (AUTO) 69.8 % (42-78); TOTAL CELLS COUNTED % (AUTO) 100 %; WHITE BLOOD COUNT 11.2 10^3/uL (4.0-10.5)
[2019-01-30 19:43] LABS: UR PRO/CREAT RATIO RESULT 0.5 mg/mg (0.0-0.2); URINE CREATININE 37.8 mg/dL (16-327); URINE PROTEIN 19.8 mg/dL (<12)
[2019-01-30 19:50] LABS: ALBUMIN 3.2 g/dL (3.5-5.0); ALKALINE PHOSPHATASE 137 U/L (38-126); ANION GAP 10 (5-19); ASPARTATE AMINO TRANSFERASE 17 U/L (14-36); BILIRUBIN,DIRECT 0.1 mg/dL (0.0-0.4); BILIRUBIN,TOTAL 0.5 mg/dL (0.2-1.3); BLOOD UREA NITROGEN 3 mg/dL (7-20); CALCIUM 9.6 mg/dL (8.4-10.2); CARBON DIOXIDE 20 mmol/L (22-30); CHLORIDE 109 mmol/L (98-107); GLUCOSE 81 mg/dL (75-110); POTASSIUM 3.6 mmol/L (3.6-5.0); TOTAL PROTEIN 5.9 g/dL (6.3-8.2); URIC ACID 5.2 mg/dL (2.5-7.0)
[2019-01-30] MEDS ORDERED: ZOLPIDEM TARTRATE 5 MG TABLET ONE (21:25)
[2019-01-30] MEDS ORDERED: FAMOTIDINE 20 MG TABLET PO ONE (22:08)
[2019-01-30] MEDS ORDERED: FAMOTIDINE 20 MG TABLET ONE (22:09)
[2019-01-31] MEDS ORDERED: DIPHENHYDRAMINE HCL 50 MG/ML VIAL ONE (01:40)
[2019-01-31] MEDS ORDERED: ACETAMINOPHEN 325 MG TABLET ONE ×2 (01:40→23:01)
[2019-01-31] MEDS ORDERED: ZOLPIDEM TARTRATE 5 MG TABLET ONE (01:41)
[2019-01-31] MEDS ORDERED: OXYTOCIN 10 UNIT/ML VIAL ONE (06:25)
[2019-01-31] MEDS ORDERED: MISOPROSTOL 0.2 MG TABLET ONE (06:25)
[2019-01-31] MEDS ORDERED: OXYTOCIN/NORMAL SALINE 0 UNIT/0 ML RTUINJ ONE (06:26)
[2019-01-31] MEDS ORDERED: PENICILLIN G-K 5 MILLION UNIT VIAL ONE (06:26)
[2019-01-31] MEDS ORDERED: LIDOCAINE 1% INJ-PF (10 MG/ML) 30 ML SDV ONE (06:26)
[2019-01-31] MEDS ORDERED: ONDANSETRON HCL INJ/PF 4 MG/2 ML SDV IV ONE (07:39)
[2019-01-31] MEDS ORDERED: ONDANSETRON HCL INJ/PF 4 MG/2 ML SDV ONE ×2 (07:43→13:41)
[2019-01-31] MEDS ORDERED: DINOPROSTONE 10 MG VAGINAL INSERT.SR ONE (08:12)
[2019-01-31] MEDS ORDERED: MISOPROSTOL 0.1 MG TABLET ONE ×2 (08:18→13:35)
[2019-01-31] MEDS ORDERED: MISOPROSTOL 0.1 MG TABLET PO SCH (09:15)
[2019-01-31] MEDS ORDERED: NALBUPHINE HCL INJ 10 MG/1 ML AMPULE ONE (13:09)
[2019-01-31] MEDS ORDERED: NALBUPHINE HCL INJ 10 MG/1 ML AMPULE INJ ONE (13:12)
[2019-01-31] MEDS ORDERED: DEXTROSE 5%-LACTATED RINGERS 500 ML IV PRN (14:24)
[2019-01-31] MEDS ORDERED: PROMETHAZINE HCL INJ 25 MG/1 ML VIAL ONE (14:40)
[2019-01-31] MEDS ORDERED: PROMETHAZINE HCL INJ 25 MG/1 ML VIAL IV ONE (14:43)
[2019-01-31] MEDS ORDERED: FENTANYL CITRATE INJ/PF 100 MCG/2 ML AMPUL ONE (15:25)
[2019-01-31] MEDS ORDERED: PHENYLEPHRINE HCL INJ/PF 10 MG/1 ML SDV ONE (15:25)
[2019-01-31] MEDS ORDERED: FENTANYL/BUPIVACAINE/NS/PF 300 MCG/150 ML RTUINJ EPI ONE (15:26)
[2019-01-31] MEDS ORDERED: BUPIVACAINE HCL 0.25 % INJ/PF (2.5 MG/1 ML) 30 ML VIAL ONE (15:26)
[2019-01-31] MEDS ORDERED: EPHEDRINE SULFATE INJ 50 MG/1 ML AMPULE ONE (15:26)
[2019-01-31] MEDS ORDERED: TERBUTALINE SULFATE INJ/PF 1 MG/1 ML SDV ONE (18:43)
[2019-01-31] MEDS ORDERED: TERBUTALINE SULFATE INJ/PF 1 MG/1 ML SDV SUBCUT ONE (18:46)
[2019-01-31] MEDS ORDERED: PANTOPRAZOLE SODIUM 40 MG TABLET.DR PO ONE (18:57)
[2019-01-31] MEDS ORDERED: PANTOPRAZOLE SODIUM 40 MG TABLET.DR PO PRN (18:59)
[2019-01-31] MEDS ORDERED: OXYTOCIN/NORMAL SALINE 20 UNIT/1,000 ML RTUINJ IV PRN (19:47)
[2019-01-31] MEDS: RINGERS SOLUTION,LACTATED 1,000 ML IV PRN (19:58)
[2019-02-01] MEDS ORDERED: ACETAMINOPHEN 325 MG TABLET PO ONE ×2 (00:30→08:07)
[2019-02-01] MEDS: RINGERS SOLUTION,LACTATED 1,000 ML IV PRN (05:13)
[2019-02-01] MEDS ORDERED: OXYTOCIN/NORMAL SALINE 20 UNIT/1,000 ML RTUINJ IV PRN ×2 (06:03→12:30)
[2019-02-01] MEDS ORDERED: FENTANYL/BUPIVACAINE/NS/PF 300 MCG/150 ML RTUINJ EPI ONE (06:20)
[2019-02-01] MEDS ORDERED: ACETAMINOPHEN 325 MG TABLET ONE (08:04)
[2019-02-01] MEDS ORDERED: PENICILLIN G-K 5 MILLION UNIT VIAL ONE (08:50)
[2019-02-01] MEDS: PENICILLIN G POTASSIUM 2,500,000 UNIT in DEXTROSE 5%-WATER 50 ML IV SCH ×3 (09:11→19:31)
[2019-02-01] MEDS ORDERED: LIDOCAINE 2%/EPINEPHRINE INJ 20 ML VIAL ONE (09:23)
[2019-02-01] MEDS ORDERED: LIDOCAINE 1.5%/EPINEPHRINE INJ 5 ML AMP ONE ×2 (09:27→09:28)
--- NOTE | 2019-02-01 11:20 | Admission Physical ---
Datetime Report Generated by CPN: 02/01/2019 11:20 CURRENT ADMISSION Chief Complaint: Scheduled Induction of Labor; Other Chief Complaint Other: Mild preeclampsia and greater than 37.0 weeks. Indication for Induction: Eclampsia-Mild Admit Impression : Induction of Labor Admit Plan: Admit to Unit; Initiate Labor Induction Protocol ALLERGIES Medication Allergies: No Medication Allergies: No Known Allergies (01/30/2019) Latex: No Latex Allergies Food Allergies: n/a Environmental Allergies: n/a OBSTETRICAL HISTORY EDC: 02/18/2019 00:00 : 4 Para: 3 Term: 3 : 0 SAB: 0 IAB: 0 Ectopic: 0 Livin Cesareans: 0 VBACs: 0 Multiple Births: 0 Gestational Diabetes: No Rh Sensitization: No Incompetent Cervix: No VAUGHN: No Infertility: No ART Treatment: No Uterine Anomaly: No IUGR: No Hx Previous C/S: No Macrosomia: No Hx Loss/Stillborn: No PIH: Yes Hx : No Placenta Previa/Abruption: No Depression/PP Depression: No PTL/PROM: No Post Hemorrhage: No Current Procedures: Ultrasound Obstetrical History Comments: Del Got with IUD with this Readmitted for pre-e with last after delivery SEE RECORDS Alcohol: No Marijuana : No Cocaine: No Other Illicit Drugs: No Cigarettes: Former Smoker. [id number] MEDICAL HISTORY Diabetes: No Blood Transfusion: No Pulmonary Disease (Asthma, TB): No Breast Disease: No Hypertension: Yes Surgical Consultant Surgery: No Heart Disease: No Hosp/Surgery: Yes Autoimmune Disorder: No Anesthetic Complications: No Kidney Disease: No Abnormal Pap Smear: No Neuro/Epilepsy: No Psychiatric Disorders: No Other Medical Diseases: No Hepatitis/Liver Disease: No Significant Family History: No Varicosities/Phlebitis: No Trauma/Violence : No Thyroid Dysfunction: No Medical History Comments: Childbirth, breast implants /Breast implants and and cyst removed INFECTIOUS HISTORY Gonorrhea: No Genital Herpes: No Chlamydia: No Tuberculosis: No Syphilis: No Hepatitis: No HIV/AIDS Exposure: No Rash or Viral Illness: No HPV: No PHYSICAL EXAM General: Normal HEENT: Normal Neurologic: Normal Thyroid: Normal Heart: Normal Lungs: Normal Breast: Normal Back: Normal Abdomen: Normal Genitourinary Exam: Normal Extremities: Normal DTRs: Normal Pelvic Type: Adequate Vital Signs: Reviewed; Within Normal Limits VAGINAL EXAM Dilatation: 0 Effacement: 0 Station: -3 Contraction Comments: No regular contractions MEMBRANES Membranes: Intact Amniotic Fluid Color: Clear FETUS A EGA: 37.2 Monitoring: External US FHR- Baseline: 155 Variability: Moderate 6-25bpm Accelerations: 15X15 Decelerations: None FHR Category: Category I Presentation: Vertex Admit Comment: at 37.2 wks EGA with mild preeclampsia-for IOL -Admit to LDR -NPO and IVFs -CEFM and toco -VS Q 1 hrs -Admit labs plus PIH labs -Mild preeclampsia, no severe features presently. Will hold off on Magnesium Sulfate presently- if severe blood pressures or features noted will begin -Hx 3 prior -Cervical ripening then Pitocin low dose for augmentation -Anticipate PLANS FOR LABOR AND DELIVERY Labor and Delivery: None Pain Management: Medications; Epidural Feeding Preference: Formula Benefit of Breast Feed Discussed: Yes Circumcision: N/A INFORMED CONSENT Informed Consent Obtained: Vaginal Delivery; Section Delivery; Induction of Labor; Vacuum/Forceps Assist Signature: with User ID: Mau : with User ID: Mau
[2019-02-01] MEDS ORDERED: BENZOCAINE/MENTHOL AEROSOL SPRAY 56 ML TOP PRN ×2 (12:30→15:06)
[2019-02-01] MEDS ORDERED: MEASLES,MUMPS&RUBELLA VACC/PF 0.5 ML VIAL SUBCUT PRN ×2 (12:30→15:06)
[2019-02-01] MEDS ORDERED: PROMETHAZINE HCL 25 MG TABLET PO PRN (12:30)
[2019-02-01] MEDS ORDERED: NA PHOS,M-B/NA PHOS,DI-BA (ADULT) 133 ML ENEMA PR PRN (12:30)
[2019-02-01] MEDS ORDERED: PSEUDOEPHEDRINE HCL 30 MG TABLET PO PRN (12:30)
[2019-02-01] MEDS ORDERED: ACETAMINOPHEN WITH CODEINE #3 TABLET PO PRN ×3 (12:30→15:06)
[2019-02-01] MEDS ORDERED: PROMETHAZINE HCL INJ 25 MG/1 ML VIAL IV PRN (12:30)
[2019-02-01] MEDS ORDERED: GLYCERIN/WITCH HAZEL LEAF 1 EACH MED..WIPE TP PRN (12:30)
[2019-02-01] MEDS ORDERED: DIPHENHYDRAMINE HCL 25 MG CAPSULE PO PRN (12:30)
[2019-02-01] MEDS ORDERED: PROMETHAZINE HCL 25 MG SUPP.RECT PR PRN (12:30)
[2019-02-01] MEDS ORDERED: ACETAMINOPHEN 650 MG SUPP.RECT PR PRN (12:30)
[2019-02-01] MEDS ORDERED: DIBUCAINE 1% OINTMENT 56 GM TP PRN ×2 (12:30→15:06)
[2019-02-01] MEDS ORDERED: ZOLPIDEM TARTRATE 5 MG TABLET PO PRN ×2 (12:30→15:06)
[2019-02-01] MEDS ORDERED: DIPH/PERTUSS(ACELL)/TETANUS VAC/PF 0.5 ML SYR (>=10YO) IM PRN ×2 (12:30→15:06)
[2019-02-01] MEDS ORDERED: MAGNESIUM HYDROXIDE SUSP 30 ML UDCUP PO PRN (12:30)
--- NOTE | 2019-02-01 13:56 | Delivery Summary ---
Del Sum A-C Datetime Report Generated by CPN: 02/01/2019 13:56 DELIVERY PERSONNEL DELIVERY PERSONNEL: [id number] Delivery Doctor:: Nata Medina MD Labor and Delivery Nurse:: Swati Fitzgerald RNimposer Nurse:: Najma Haddad RN Nursery Nurse:: Minnie Dumas RN Nursery Nurse:: milana agarwal RN Counter Supervisor/TIE BINDER: Latasha Haddad CNA II Counter Supervisor/TIE BINDER: wilmar Olvera, Additional Personnel: : Azeb Gill RN MATERNAL INFORMATION Delivery Anesthesia: Epidural Medications After Delivery: Pitocin Bolus-Please Comment Estimated Blood Loss (ml): 200 Delivery QBL: 200 Maternal Complications: None Provider Comments: After delivery of the head, the head pulled back up against the perineum. A nuchal cord x 1 was noted wind was loose enough to reduce. A true know was noted in this segement of cord. Boris instituted and no resolution of dystocia. Suprapubic was applied in direction of anterior shoulder by RN. Anterior shoulder delivered. The rest of the body then quickly delivered. Terminal meconium noted. The cord was doubly clamped and cut. handed off to Nursery RN awaiting. Baby grimacing and starting to cry with suctioning of oral and nasal cavity prior to hand off. Both baby and mother stable. No lacerations. Fundus firm. LABOR SUMMARY EDC: 02/18/2019 00:00 No. Babies in Womb: 1 Attempted: No Labor Anesthesia: Epidural LABOR INFORMATION Reason for Induction: Pre-Eclampsia Onset of Labor: 02/01/2019 04:55 Complete Dilatation: 02/01/2019 11:27 Cervical Ripening Agents: Cervidil; [place] Balloon; Cytotec @ Oxytocin: Induction Group B Beta Strep: positive Antibiotics # of Doses: 2 Antibiotics Time of Last Dose: 911 Name of Antibiotic Given: Penicillin Steroids Given: None Reason Steroids Not Administered: Not Applicable MEMBRANES Membranes Rupture Method: Artificial Rupture of Membranes: 02/01/2019 04:55 Length of Rupture (hr): 7.10 Amniotic Fluid Color: Clear Amniotic Fluid Amount: Copious Amniotic Fluid Odor: Normal STAGES OF LABOR Stage 1 hr: 6 Stage 1 min: 32 Stage 2 hr: 0 Stage 2 min: 34 Stage 3 hr: 0 Stage 3 min: 4 Total Time in Labor hr: 7 Total Time in Labor min: 10 VAGINAL DELIVERY Episiotomy: None Laceration #1: None Laceration Extension #1: N/A Laceration Repair: Not Applicable Sponge Count Correct: Yes Sharps Count Correct: Yes CSECTION DELIVERY Primary Indication: N/A Secondary Indication: N/A CSection Incidence: N/A Labor: N/A Elective: N/A CSection Incision: N/A BABY A INFORMATION Infant Delivery Date/Time: 02/01/2019 12:01 Method of Delivery: Vaginal Born in Route : No : N/A Forceps: N/A Vacuum Extraction: N/A Shoulder Dystocia : Yes SHOULDER DYSTOCIA BABY A Delivery of Head: 02/01/2019 12:00 Time Head to Delivery : 1.0 1st Intervention to Resolve: Gentle Attempt at Traction, Assisted by Maternal Expulsive Efforts 2nd Intervention to Resolve: McRobert's Maneuver 3rd Intervention to Resolve: Suprapubic Pressure Verify NO Fundal Pressure: No Fundal Pressure Applied Arm Under Symphisis at Del: Left PRESENTATION/POSITION BABY A Presentation: Cephalic Cephalic Presentation: Vertex Vertex Position: Left Occipital Anterior Breech Presentation: N/A PLACENTA INFORMATION BABY A Placenta Delivery Time : 02/01/2019 12:05 Placenta Method of Delivery: Spontaneous Placenta Status: Delivered SCORES BABY A Heart Rate 1 min: >100 bpm Resp Effort 1 min: Good Cry Reflex Irritability 1 min: Cough or Sneeze or Pulls Away Muscle Tone 1 min: Some Flexion of Extremities Color 1 min: Blue/Pale Resuscitation Effort 1 min: Tactile Stimulation SCORE 1 MIN: 7 Heart Rate 5 min: >100 bpm Resp Effort 5 min: Good Cry Reflex Irritability 5 min: Cough or Sneeze or Pulls Away Muscle Tone 5 min: Active Motion Color 5 min: Body [place], Extremities Blue SCORE 5 MIN: 9 INFORMATION BABY A Gestational Age at Delivery: 37.4 Gestational Status: Early Term- 37- 38.6 Weeks Infant Outcome : Stillborn Condition : Stable Infant Sex: Female IDENTIFICATION BABY A Infant Verification Date/Time: 02/01/2019 12:43 ID Band Number: [id number] Mother's Name Verified: Yes RN Verifying Infant: ALESHA MANCIA, RN WEIGHT/LENGTH BABY A Birthweight (gm): 3459 Weight (lb): 7 Weight (oz): 10 Length (in): 20.50 Length (cm): 52.07 CORD INFORMATION BABY A No. Cord Vessels: 3 Nuchal Cord : Around Neck x1, Loose Cord Blood Taken: Yes-For Storage (Mom's Blood type +) Infant Suction: None ASSESSMENT BABY A Physical Findings at Delivery: Caput Succedaneum; Molding of the Head Skin to Skin: Yes BABY B INFORMATION : N/A SIGNATURES Signature: with User ID: Mau : with User ID: [email or web address]
[2019-02-01] MEDS ORDERED: IBUPROFEN 800 MG TABLET PO SCH (14:00)
[2019-02-01] MEDS ORDERED: OXYTOCIN/NORMAL SALINE 1,000 ML IV PRN (15:06)
[2019-02-01] MEDS: ACETAMINOPHEN WITH CODEINE #3 TABLET PO PRN ×2 (15:58→20:14)
[2019-02-01] MEDS: FERROUS SULFATE 325 MG TABLET PO SCH ×2 (17:41→17:43)
[2019-02-01] MEDS: DOCUSATE SODIUM 100 MG CAPSULE PO SCH (17:41)
[2019-02-01] MEDS ORDERED: DOCUSATE SODIUM 100 MG CAPSULE PO SCH (18:00)
[2019-02-01] MEDS: ZOLPIDEM TARTRATE 5 MG TABLET PO SCH ×2 (19:30→19:41)
[2019-02-01] MEDS: IBUPROFEN 800 MG TABLET PO SCH (21:06)
[2019-02-01] MEDS ORDERED: FAMOTIDINE 20 MG TABLET PO SCH (22:00)
[2019-02-02] MEDS: IBUPROFEN 800 MG TABLET PO SCH ×3 (05:32→21:53)
[2019-02-02 06:34] LABS: HEMATOCRIT 29.8 % (36.0-47.0); HEMOGLOBIN 10.5 g/dL (12.0-15.5); MEAN CORPUSCULAR HEMOGLOBIN 30.6 pg (27.0-33.4); MEAN CORPUSCULAR HGB CONC 35.2 g/dL (32.0-36.0); MEAN CORPUSCULAR VOLUME 87 fl (80-97); PLATELET COUNT 203 10^3/uL (150-450); RED BLOOD COUNT 3.43 10^6/uL (3.72-5.28); RED CELL DISTRIBUTION WIDTH 14.5 % (11.5-14.0); WHITE BLOOD COUNT 12.6 10^3/uL (4.0-10.5)
[2019-02-02] MEDS: DOCUSATE SODIUM 100 MG CAPSULE PO SCH ×2 (09:32→17:19)
[2019-02-02] MEDS: PRENATAL VITAMIN W DHA CAPSULE PO SCH (09:32)
[2019-02-02] MEDS: FERROUS SULFATE 325 MG TABLET PO SCH ×2 (09:33→17:19)
[2019-02-02] MEDS: SENNOSIDES/DOCUSATE 8.6-50 MG 1 EACH TABLET PO SCH (09:33)
[2019-02-02] MEDS ORDERED: SENNOSIDES/DOCUSATE 8.6-50 MG 1 EACH TABLET PO SCH (10:00)
[2019-02-02] MEDS ORDERED: PRENATAL VITAMIN W DHA CAPSULE PO SCH (10:00)
[2019-02-02] MEDS ORDERED: BENZOCAINE/MENTHOL SORE THROAT LOZENGE BUCCAL PRN (14:24)
--- NOTE | 2019-02-02 14:34 | PDOC PROGRESS REPORT ---
Subjective-OB Progress Note for:: 02/02/19 Subjective: 33yo G4 now P4 s/p ppd1. Pt. is bottlefeeding, reports pain is well controlled with medication. Ambulating and voiding without difficulty. No concerns. Physical Exam (OB) Vital Signs: Temp Pulse Resp BP Pulse Ox 97.5 F 78 18 122/81 100 02/02/19 07:47 02/02/19 07:47 02/02/19 07:47 02/02/19 07:47 02/02/19 07:47 Intake & Output 02/01/19 02/02/19 02/03/19 06:59 06:59 06:59 Intake Total 1000 Balance 1000 - General General Appearance: Appears well In distress: None - PIH/Pre-Eclampsia DTR's: 2 + Clonus: Negative Headache: Absent Epigastric Pain: No Visual Changes: No - Episiotomy/Laceration Site Condition: N/A - Lochia Lochia Amount: Small 10-25 ml Lochia Color: Rubra/Red - Abdomen Description: Soft, Round Hernia Present: No Fundal Description: Firm, Midline Fundal Height: u/u - u/2 - Respiratory Respiratory Status: No respiratory distress - Extremities Upper extremity: Normal inspection Lower extremities: Edema - Neurological Cognition: Normal Orientation: AAOx4 - Psychological Associated symptoms: Normal affect, Normal mood Objective-Diagnostic Laboratory: 02/02/19 06:16 01/30/19 19:09 02/02/19 06:16 WBC 12.6 H RBC 3.43 L Hgb 10.5 L Hct 29.8 L MCV 87 MCH 30.6 MCHC 35.2 RDW 14.5 H Plt Count 203 Assessment and Plan(PN) - Assessment and Plan (1) Shoulder dystocia during labor and delivery, delivered Is this a current diagnosis for this admission?: Yes Plan: delivered, baby in room and doing well (2) Gestational hypertension Qualifiers: Trimester: third trimester Qualified Code(s): O13.3 - Gestational [-induced] hypertension without significant proteinuria, third trimester Is this a current diagnosis for this admission?: Yes Plan: , continue to monitor for s/s of post pre-e (3) Vaginal delivery Is this a current diagnosis for this admission?: Yes Plan: Routine pp care (4) Acute blood loss anemia Is this a current diagnosis for this admission?: Yes Plan: increase dietary iron and FeSO4 BID (5) Pre-eclampsia Qualifiers: Trimester: third trimester Qualified Code(s): O14.93 - Unspecified pre- eclampsia, third trimester Is this a current diagnosis for this admission?: Yes Plan: continue to monitor for s/s of post pre-e - Time Spent with Patient Time with patient: Less than 15 minutes Medications reviewed and adjusted accordingly: Yes - Disposition Anticipated Discharge: Home Within: within 24 hours
[2019-02-02] MEDS: ACETAMINOPHEN WITH CODEINE #3 TABLET PO PRN ×2 (14:45→19:47)
[2019-02-03] MEDS: ACETAMINOPHEN WITH CODEINE #3 TABLET PO PRN ×2 (04:32→11:41)
[2019-02-03] MEDS: IBUPROFEN 800 MG TABLET PO SCH ×2 (05:50→13:49)
[2019-02-03] MEDS: SENNOSIDES/DOCUSATE 8.6-50 MG 1 EACH TABLET PO SCH (09:18)
[2019-02-03] MEDS: FERROUS SULFATE 325 MG TABLET PO SCH (09:18)
[2019-02-03] MEDS: PRENATAL VITAMIN W DHA CAPSULE PO SCH (09:18)
[2019-02-03] MEDS: DOCUSATE SODIUM 100 MG CAPSULE PO SCH (09:19)
--- NOTE | 2019-02-03 09:41 | PDOC PROGRESS REPORT ---
Subjective-OB Progress Note for:: 02/03/19 Subjective: Ready to go home. Physical Exam (OB) Vital Signs: Temp Pulse Resp BP Pulse Ox 97.6 F 86 18 141/91 H 100 02/03/19 08:15 02/03/19 08:15 02/03/19 08:15 02/03/19 08:15 02/03/19 08:15 - PIH/Pre-Eclampsia DTR's: 2 + Clonus: Negative Headache: Absent Epigastric Pain: No Visual Changes: No - Lochia Lochia Amount: Scant < 10 ml Lochia Color: Rubra/Red - Abdomen Description: Soft Hernia Present: No Bowel Sounds: Normoactive Flatus Presence: Present Stool: No Fundal Description: Firm Fundal Height: u/u - u/2 Objective-Diagnostic Laboratory: 02/02/19 06:16 01/30/19 19:09 Assessment and Plan(PN) - Time Spent with Patient Medications reviewed and adjusted accordingly: Yes - Disposition Anticipated Discharge: Home
--- NOTE | 2019-02-03 09:48 | PDOC DISCHARGE SUMMARY ---
Impression - Admit/DC Date/PCP Admission Date/Primary Care Provider: 01/30/19 18:16 ADRYAN SANDERS MD Discharge Date: 02/03/19 - Discharge Diagnosis (1) Anxiety Is this a current diagnosis for this admission?: Yes (2) Gestational hypertension Is this a current diagnosis for this admission?: Yes (3) Positive GBS test Is this a current diagnosis for this admission?: Yes (4) Pre-eclampsia Is this a current diagnosis for this admission?: Yes (5) Shoulder dystocia during labor and delivery, delivered Is this a current diagnosis for this admission?: Yes (6) Vaginal delivery Is this a current diagnosis for this admission?: Yes - Additional Information Resuscitation Status: Full Code Discharge Diet: Regular Discharge Activity: Activity As Tolerated, Balance Activity w/Rest, No Lifting Over 10 Pounds, Pelvic Rest, Slowly Increase Activity, No tub bath Referrals: ADRYAN SANDERS MD [Primary Care Provider] - Home Medications: 95/Iron Fum/Folic/Dha [ + Dha Combo Pack] 1 tab PO DAILY 09/01/16 HPI Gestational Age: 37.4 wks Reason(s) for Admission: Induction of Labor, PIH Procedures: Ultrasound Intrapartum Procedure(s): Spontaneous Vaginal Delivery Results Laboratory Results: WBC 12.6 10^3/uL (4.0-10.5) H 02/02/19 06:16 RBC 3.43 10^6/uL (3.72-5.28) L 02/02/19 06:16 Hgb 10.5 g/dL (12.0-15.5) L 02/02/19 06:16 Hct 29.8 % (36.0-47.0) L 02/02/19 06:16 MCV 87 fl (80-97) 02/02/19 06:16 MCH 30.6 pg (27.0-33.4) 02/02/19 06:16 MCHC 35.2 g/dL (32.0-36.0) 02/02/19 06:16 RDW 14.5 % (11.5-14.0) H 02/02/19 06:16 Plt Count 203 10^3/uL (150-450) 02/02/19 06:16 Lymph % (Auto) 22.5 % (13-45) 01/30/19 19:09 [place] % (Auto) 5.7 % (3-13) 01/30/19 19:09 Eos % (Auto) 1.8 % (0-6) 01/30/19 19:09 Baso % (Auto) 0.2 % (0-2) 01/30/19 19:09 Absolute Neuts (auto) 7.8 10^3/uL (1.7-8.2) 01/30/19 19:09 Absolute Lymphs (auto) 2.5 10^3/uL (0.5-4.7) 01/30/19 19:09 Absolute Monos (auto) 0.6 10^3/uL (0.1-1.4) 01/30/19 19:09 Absolute Eos (auto) 0.2 10^3/uL (0.0-0.6) 01/30/19 19:09 Absolute Basos (auto) 0.0 10^3/uL (0.0-0.2) 01/30/19 19:09 Seg Neutrophils % 69.8 % (42-78) 01/30/19 19:09 Sodium 138.6 mmol/L (137-145) 01/30/19 19:09 Potassium 3.6 mmol/L (3.6-5.0) 01/30/19 19:09 Chloride 109 mmol/L (98-107) H 01/30/19 19:09 Carbon Dioxide 20 mmol/L (22-30) L 01/30/19 19:09 Anion Gap 10 (5-19) 01/30/19 19:09 BUN 3 mg/dL (7-20) L 01/30/19 19:09 Creatinine 0.64 mg/dL (0.52-1.25) 01/30/19 19:09 Est GFR ( Amer) > 60 (>60) 01/30/19 19:09 Est GFR (MDRD) Non-Af > 60 (>60) 01/30/19 19:09 Glucose 81 mg/dL (75-110) 01/30/19 19:09 Uric Acid 5.2 mg/dL (2.5-7.0) 01/30/19 19:09 Calcium 9.6 mg/dL (8.4-10.2) 01/30/19 19:09 Total Bilirubin 0.5 mg/dL (0.2-1.3) 01/30/19 19:09 Direct Bilirubin 0.1 mg/dL (0.0-0.4) 01/30/19 19:09 Neonat Total Bilirubin Not Reportable 01/30/19 19:09 Neonat Direct Bilirubin Not Reportable 01/30/19 19:09 Neonat Indirect Bili Not Reportable 01/30/19 19:09 AST 17 U/L (14-36) 01/30/19 19:09 ALT 12 U/L (<35) 01/30/19 19:09 Alkaline Phosphatase 137 U/L (38-126) H 01/30/19 19:09 Lactate Dehydrogenase 187 U/L (120-246) 01/30/19 19:09 Total Protein 5.9 g/dL (6.3-8.2) L 01/30/19 19:09 Albumin 3.2 g/dL (3.5-5.0) L 01/30/19 19:09 Urine Color YELLOW 01/30/19 18:35 Urine Appearance SLIGHTLY-CLOUDY 01/30/19 18:35 Urine pH 7.0 (5.0-9.0) 01/30/19 18:35 Ur Specific [place] 1.005 01/30/19 18:35 Urine Protein NEGATIVE mg/dL (NEGATIVE) 01/30/19 18:35 Urine Glucose (UA) NEGATIVE mg/dL (NEGATIVE) 01/30/19 18:35 Urine Ketones TRACE mg/dL (NEGATIVE) H 01/30/19 18:35 Urine Blood SMALL (NEGATIVE) H 01/30/19 18:35 Urine Nitrite NEGATIVE (NEGATIVE) 01/30/19 18:35 Urine Bilirubin NEGATIVE (NEGATIVE) 01/30/19 18:35 Urine Urobilinogen NEGATIVE mg/dL (<2.0) 01/30/19 18:35 Ur Leukocyte Esterase LARGE (NEGATIVE) H 01/30/19 18:35 Urine WBC (Auto) 20 /HPF 01/30/19 18:35 Urine RBC (Auto) 2 /HPF 01/30/19 18:35 Urine Bacteria (Auto) 2+ /HPF 01/30/19 18:35 Squamous Epi Cells Auto 3 /HPF 01/30/19 18:35 Urine Mucus (Auto) RARE /LPF 01/30/19 18:35 Urine Creatinine 37.8 mg/dL (16-327) 01/30/19 16:08 Protein/Creatinin Ratio 0.5 mg/mg (0.0-0.2) H 01/30/19 16:08 Urine Total Protein 19.8 mg/dL (<12) H 01/30/19 16:08 Urine Ascorbic Acid NEGATIVE (NEGATIVE) 01/30/19 18:35 Urine Opiates Screen NEGATIVE 01/30/19 18:35 Urine Methadone Screen NEGATIVE 01/30/19 18:35 Ur Barbiturates Screen NEGATIVE 01/30/19 18:35 Ur Phencyclidine Scrn NEGATIVE 01/30/19 18:35 Ur Amphetamines Screen NEGATIVE 01/30/19 18:35 U Benzodiazepines Scrn NEGATIVE 01/30/19 18:35 Urine Cocaine Screen NEGATIVE 01/30/19 18:35 U Marijuana (THC) Screen NEGATIVE 01/30/19 18:35 RPR NONREACTIVE (NONREACTIVE) 01/30/19 19:09 Blood Type O POSITIVE 01/30/19 19:09 Antibody Screen NEGATIVE 01/30/19 19:09 Plan Plan of Treatment: Follow up at [facility] in 4 wks or prn. Time Spent: Less than 30 Minutes
[2019-02-03 13:22] VITALS: BP 137/91
== END 2019-02-03 14:10 | disposition home or self-care (01) | DRG 806 ==
LOC: LR 18:16 → 2S 02-01 14:30
PROVIDERS: ADMIT Obstetrics & Gynecology Gynecology; ATTEND Obstetrics & Gynecology Gynecology
PROC: 10D07Z6 Extraction of Products of Conception, Vacuum, Via Natural or Artificial Opening (ICD-10-PCS; principal; 2019-02-01)
PROC: 10907ZC Drainage of Amniotic Fluid, Therapeutic from Products of Conception, Via Natural or Artificial Opening (ICD-10-PCS; 2019-02-01)
DX: O14.04 Mild to moderate pre-eclampsia, complicating childbirth (principal); D62 Acute posthemorrhagic anemia; Z37.0 Single live birth; O69.81X0 Labor and delivery complicated by cord around neck, without compression, not applicable or unspecified; O77.0 Labor and delivery complicated by meconium in amniotic fluid; O99.824 Streptococcus B carrier state complicating childbirth; O66.0 Obstructed labor due to shoulder dystocia; O13.3 Gestational [pregnancy-induced] hypertension without significant proteinuria, third trimester; O99.02 Anemia complicating childbirth; Z3A.37 37 weeks gestation of pregnancy
CPT/HCPCS: 36415; 80053; 80307; 81001; 82570; 83615; 84156; 84550; 85025; 85027; 86592; 86850; 86900; 86901; 88307; C1758; J1200; J2300; J2370; J2405; J2540; J2550; J2590; J3010; J3105; J3490

== ENCOUNTER 2019-02-06 23:08 | Inpatient (IN) | payer BC ==
[2019-02-07 00:24] LABS: ABSOLUTE EOSINOPHILS # (AUTO) 0.2 10^3/uL (0.0-0.6); ABSOLUTE LYMPHOCYTES (AUTO) 2.6 10^3/uL (0.5-4.7); ABSOLUTE MONOCYTES (AUTO) 0.4 10^3/uL (0.1-1.4); ABSOLUTE NEUT (AUTO) 4.9 10^3/uL (1.7-8.2); BASOPHILS % (AUTO) 0.5 % (0-2); EOSINOPHILS % (AUTO) 3.1 % (0-6); HEMATOCRIT 35.1 % (36.0-47.0); HEMOGLOBIN 12.1 g/dL (12.0-15.5); LYMPHOCYTES % (AUTO) 31.5 % (13-45); MEAN CORPUSCULAR HEMOGLOBIN 29.9 pg (27.0-33.4); MEAN CORPUSCULAR HGB CONC 34.6 g/dL (32.0-36.0); MEAN CORPUSCULAR VOLUME 87 fl (80-97); MONOCYTES % (AUTO) 4.4 % (3-13); PLATELET COUNT 353 10^3/uL (150-450); RED BLOOD COUNT 4.05 10^6/uL (3.72-5.28); RED CELL DISTRIBUTION WIDTH 14.1 % (11.5-14.0); SEGMENTED NEUTROPHILS % (AUTO) 60.5 % (42-78); TOTAL CELLS COUNTED % (AUTO) 100 %; WHITE BLOOD COUNT 8.1 10^3/uL (4.0-10.5)
[2019-02-07 00:36] LABS: APPEARANCE,URINE CLEAR; BILIRUBIN,URINE NEGATIVE (NEGATIVE); COLOR,URINE COLORLESS; GLUCOSE, URINE NEGATIVE (NEGATIVE); KETONES,URINE NEGATIVE (NEGATIVE); LEUKOCYTE ESTERASE,URINE NEGATIVE (NEGATIVE); NITRITE,URINE NEGATIVE (NEGATIVE); PROTEIN,URINE NEGATIVE (NEGATIVE); URINE SPECIFIC GRAVITY 1.005; UROBILINOGEN,URINE NEGATIVE mg/dL (<2.0)
[2019-02-07 00:49] LABS: ALBUMIN 3.4 g/dL (3.5-5.0); ALKALINE PHOSPHATASE 122 U/L (38-126); ANION GAP 12 (5-19); ASPARTATE AMINO TRANSFERASE 26 U/L (14-36); BILIRUBIN,DIRECT 0.2 mg/dL (0.0-0.4); BILIRUBIN,TOTAL 0.4 mg/dL (0.2-1.3); BLOOD UREA NITROGEN 13 mg/dL (7-20); CALCIUM 9.9 mg/dL (8.4-10.2); CARBON DIOXIDE 24 mmol/L (22-30); CHLORIDE 104 mmol/L (98-107); GLUCOSE 88 mg/dL (75-110); POTASSIUM 3.5 mmol/L (3.6-5.0); TOTAL PROTEIN 6.2 g/dL (6.3-8.2)
[2019-02-07] MEDS ORDERED: LABETALOL HCL INJ 20 MG/4 ML DISP.SYRIN IV ONE (01:54)
--- NOTE | 2019-02-07 01:59 | ER Document Report ---
ED General - General Chief Complaint: Blood Pressure Problem Stated Complaint: REPORTS HIGH BLOOD PRESSURE Time Seen by Provider: 02/07/19 01:53 Primary Care Provider: ADRYAN SANDERS MD [Primary Care Provider] - Follow up as needed TRAVEL OUTSIDE OF THE [place] IN LAST 30 DAYS: No - Related Data Allergies/Adverse Reactions: No Known Allergies Allergy (Verified 01/30/19 18:24) Home Medications: motrin and tylenol as needed Past Medical History - Social History Smoking Status: Never Smoker Chew tobacco use (# tins/day): No Frequency of alcohol use: None Family History: Reviewed & Not Pertinent Patient has suicidal ideation: No Patient has homicidal ideation: No Renal/ Medical History: Denies: Hx Peritoneal Dialysis Physical Exam - Vital signs Vitals: Temp Pulse Resp BP Pulse Ox 97.6 F 60 18 186/100 H 99 02/06/19 23:27 02/06/19 23:27 02/06/19 23:27 02/06/19 23:27 02/06/19 23:27 - Notes Notes: Patient presents emerged department complaining of elevated blood pressure has been going on for the past several days. Patient status post vaginal delivery about 5 days ago. She was induced early because she developed preeclampsia. Blood pressure slightly elevated when she left the hospital but she says is been gradually creeping up. She does report that she developed an occipital headache earlier this evening. Came on gradually got progressively worse and was not a thunderclap headache. Not associated any abnormal vision nausea or vomiting. She denies any chest pain or shortness of breath at this time no abdominal pain some minimal vaginal bleeding. Was that her lower extremity edema has increased. Medical history is negative for hypertension. During her last 2 pregnancies she had -induced hypertension and was on medications a week postop following each until her blood pressure improved she does not have blood pressure problems related to her . She has no diabetes or heart disease Social history does not smoke or drink at all Family history is noncontributory Review of systems pertinent positives and negatives in HPI otherwise all the systems were reviewed and acutely negative PHYSICIAN EXAM -vital signs are noted triage note and note from triage reviewed GENERAL: Well-appearing, well-nourished and in _no acute distress HEAD: Atraumatic, normocephalic. EYES: Pupils equal round and reactive to light, extraocular movements intact, nystagmus sclera anicteric, conjunctiva are normal. ENT: nares patent, oropharynx clear without exudates. Moist mucous membranes. NECK: supple without lymphadenopathy LUNGS: Breath sounds clear to auscultation bilaterally and equal. No wheezes rales or rhonchi. HEART: Regular rate and rhythm without murmurs ABDOMEN: Soft, nontender, normoactive bowel sounds. She is slightly distended bilateral and present enlarged uterus EXTREMITIES: No deformity, she is got +2 edema to the knees is no palpable cords NEUROLOGICAL: Alert and oriented x4. Cranial nerves he has symmetrical smile facies and shoulder shrug. His motor strength is 5/5 bilaterally in the upper and lower extremities. Toes downgoing. Sensation is intact to light touch is a negative Romberg and normal gait flexes +3 but no clonus PSYCH: Normal mood, normal affect. SKIN: Warm, Dry, normal turgor, no rashes or lesions noted. BACK-nontender in the midline Differential diagnosis eclampsia -induced hypertension Course - Re-evaluation Re-evalutation: 02/07/19 04:08 ED patient has remained stable she was given 1 dose of the light labetalol initially with significant provement of blood pressure. Tylenol also headache has improved but still has a mild headache and was given 1 dose of oxycodone. Was treated with Lasix and potassium and loaded with magnesium and placed on a drip he has remained hemodynamically stable Medical decision making patient with hypertension and may be some evidence of cardiomyopathy elevated BNP definite evidence of CHF. She will need to be admitted to the hospital. Consult [employer] in light of her elevated BNP should be admitted to medical service have consulted the hospitalist Dictation was done using voice recognition software. There may be some grammatical errors which are unintentional Please review the discharge instructions I discussed results of laboratory findings and diagnostic test with patient/family. The treatment plan was explained and I reviewed the discharge instructions with them. Questions were answered. The patient/family verbalizes understanding 02/07/19 04:22 Admitted discussed case with the hospitalist who feels the patient should be admitted to the OB service and they can consult I did consult [employer] again and they have agreed to meet the patient - Vital Signs Vital signs: Temp Pulse Resp BP Pulse Ox 97.6 F 60 20 147/91 H 98 02/06/19 23:53 02/06/19 23:53 02/07/19 02:46 02/07/19 02:46 02/07/19 02:46 - Laboratory Result Diagrams: 02/07/19 00:05 02/07/19 00:05 Laboratory results interpreted by me: 02/07/19 02/07/19 02/07/19 00:05 00:05 00:05 Hct 35.1 L RDW 14.1 H Potassium 3.5 L NT-Pro-B Natriuret Pep Total Protein 6.2 L Albumin 3.4 L Urine Blood MODERATE H 02/07/19 00:05 Hct RDW Potassium NT-Pro-B Natriuret Pep 666 H Total Protein Albumin Urine Blood - Diagnostic Test Radiology reviewed: Reports reviewed Radiology results interpreted by me: 02/07/19 04:07 The x-ray was reviewed by me and the heart is upper limits of normal - EKG Interpretation by Me Additional EKG results interpreted by me: 02/07/19 04:08 G shows a sinus bradycardia rate 56 acute changes. This is improved from previous EKG has some nonspecific changes Critical Care Note - Critical Care Note Total time excluding time spent on procedures (mins): 35 Discharge - Discharge Clinical Impression: Headache in , , cardiomyopathy Hypertension Qualifiers: Hypertension type: unspecified Qualified Code(s): I10 - Essential (primary) hypertension Condition: Stable Disposition: ADMITTED INPATIENT Admitting Provider: [facility] - DR GRIMES Unit Admitted: Telemetry Referrals: ADRYAN SANDERS MD [Primary Care Provider] - Follow up as needed
[2019-02-07] MEDS ORDERED: ACETAMINOPHEN 325 MG TABLET PO ONE (02:01)
--- NOTE | 2019-02-07 02:44 | RADIOLOGY REPORT (SQ) ---
CLINICAL HISTORY: Shortness of breath COMPARISON: None. TECHNIQUE: XR CHEST 2 VIEWS 02/07/2019 1:54 AM EVENT COORDIN[employer] FINDINGS: Cardiac silhouette is normal in size. Lungs are clear without consolidation, atelectasis, mass or edema. There is no pleural effusion. There is no pneumothorax. There are no acute osseous findings. IMPRESSION: Clear lungs.
[2019-02-07] MEDS ORDERED: OXYCODONE HCL IR 5 MG TABLET PO ONE (03:22)
[2019-02-07] MEDS ORDERED: FUROSEMIDE INJ/PF 20 MG/2 ML SDV IV ONE (04:02)
[2019-02-07] MEDS ORDERED: MAGNESIUM SULFATE 4 GM/100 ML RTUPB IV ONE ×3 (04:02→04:19)
[2019-02-07] MEDS ORDERED: POTASSIUM CHLORIDE 10 MEQ TABLET.ER PO ONE (04:02)
[2019-02-07] MEDS ORDERED: MAGNESIUM SULFATE 20 GM/500 ML RTUINJ IV ONE ×2 (04:20→15:07)
[2019-02-07] MEDS: MAGNESIUM SULFATE 20 GM/500 ML RTUINJ IV PRN ×2 (05:16→15:19)
[2019-02-07] MEDS ORDERED: RINGERS SOLUTION,LACTATED 1,000 ML IV PRN ×2 (05:50→12:37)
[2019-02-07] MEDS ORDERED: HYDROMORPHONE HCL INJ/PF 2 MG/ML AMPULE IV ONE (06:26)
--- NOTE | 2019-02-07 06:44 | EKG REPORT ---
SEVERITY:- NORMAL ECG - SINUS RHYTHM : Confirmed by: Alon Paulson MD 07-Feb-2019 06:43:30
[2019-02-07] MEDS ORDERED: HYDRALAZINE HCL INJ/PF 20 MG/1 ML SDV IV PRN (08:15)
[2019-02-07] MEDS: ONDANSETRON HCL INJ/PF 4 MG/2 ML SDV IV PRN ×2 (08:28→16:00)
[2019-02-07 09:18] LABS: URINE AMPHETAMINES SCREEN NEGATIVE; URINE BARBITURATES SCREEN NEGATIVE; URINE BENZODIAZEPINES SCREEN NEGATIVE; URINE COCAINE SCREEN NEGATIVE; URINE MARIJUANA (THC) SCREEN NEGATIVE; URINE METHADONE SCREEN NEGATIVE; URINE PHENCYCLIDINE SCREEN NEGATIVE
--- NOTE | 2019-02-07 09:23 | RADIOLOGY REPORT (SQ) ---
EXAM DESCRIPTION: CTA HEAD COMPLETED DATE/TIME: 02/07/2019 9:00 am REASON FOR STUDY: Post pre-eclampsia with headache COMPARISON: 10/02/2016. TECHNIQUE: Axial images acquired through the brain without and with intravenous contrast. Images re viewed with bone, brain and subdural windows. Additional sagittal and coronal reconstructions were g enerated. Images stored on PACS. CT angio nulato of [place] was performed. Thin section postcontrast CT images were reviewed with maxim um intensity projected images of the nulato of [place] in multiple orientations. All CT scanners at this facility use dose modulation, iterative reconstruction, and/or weight based d osing when appropriate to reduce radiation dose to as low as reasonably achievable (ALARA). [facility]: Dose Right [facility]: CareDose [facility]: Dose Right [facility]: Teradose 4D [facility]: Qwilr CONTRAST TYPE AND DOSE: contrast/concentration: Isovue 350.00 mg/ml; Total Contrast Delivered: 70.0 ml; Total Saline Delivered: 66.3 ml RENAL FUNCTION: BUN 13 creatinine 0.86. RADIATION DOSE: CT Rad equipment meets quality standard of care and radiation dose reduction techniq ues were employed. CTDIvol: 12.4 - 53.2 mGy. DLP: 1427 mGy-cm.. LIMITATIONS: None. FINDINGS: VENTRICLES: Normal size and contour. CEREBRUM: No masses. No hemorrhage. No midline shift. No evidence for acute infarction. Normal gra y/white matter differentiation. No areas of low density in the white matter. CEREBELLUM: No masses. No hemorrhage. No alteration of density. No evidence for acute infarction. No enhancing lesions. EXTRA-AXIAL SPACES: No fluid collections. No enhancing lesions. ORBITS AND GLOBE: No intra- or extraconal masses. Normal contour of globe without masses. CALVARIUM: No fracture. PARANASAL SINUSES: No fluid or mucosal thickening. SOFT TISSUES: No mass or hematoma. OTHER: No other significant finding. CTA COW: SNOQUALMIE OF [place]: The anterior, middle, posterior cerebral arteries are all patent. The A 1 segment of the right anterior cerebral artery is either small or absent. Patent anterior communicating arter y. No evidence of aneurysm or focal stenosis. POSTERIOR CIRCULATION: The distal vertebral arteries are patent as is the basilar artery. No aneurysm . OTHER: No other significant finding. IMPRESSION: NORMAL BRAIN CT WITH AND WITHOUT CONTRAST. NO CTA EVIDENCE OF STENOSIS OR ANEURYSM OF THE SNOQUALMIE OF [place]. EVIDENCE OF ACUTE STROKE: NO. TECHNICAL DOCUMENTATION: JOB ID: [id number] Quality ID # 436: Final reports with documentation of one or more dose reduction techniques (e.g., Au tomated exposure control, adjustment of the mA and/or kV according to patient size, use of iterative reconstruction technique) 2010 [employer]- All Rights Reserved Reading location - IP/workstation name: [email or web address]
--- NOTE | 2019-02-07 09:29 | RADIOLOGY REPORT (SQ) ---
EXAM DESCRIPTION: CTA NECK COMPLETED DATE/TIME: 02/07/2019 9:00 am REASON FOR STUDY: Post pre-eclampsia with headache COMPARISON: None. TECHNIQUE: Axial dynamic scanning technique with dynamic contrast enhancement through the extra-crab steamer nial carotid and vertebral arteries. Multiplanar reconstruction. 3-D MIPS and Volume-rendered imag es acquired at the workstation and saved to PACS. Images are reviewed in soft tissue, bone, lung w indows. All CT scanners at this facility use dose modulation, iterative reconstruction, and/or weight based d osing when appropriate to reduce radiation dose to as low as reasonably achievable (ALARA). [facility]: Dose Right [facility]: CareDose [facility]: Dose Right [facility]: Teradose 4D [facility]: Xspand CONTRAST TYPE AND DOSE: 70 mL Omnipaque 350- low osmolar. RENAL FUNCTION: BUN 13 creatinine 0.86. LIMITATIONS: None. FINDINGS: AORTIC ARCH: Normal three-vessel origin. Bilateral subclavian arteries are patent. No d issection. RIGHT CAROTIDS: Patent common, internal and external carotid arteries without suggestion of significa nt stenosis or irregular plaque. No dissection. RIGHT VERTEBRAL: Patent. No dissection. LEFT CAROTIDS: Patent common, internal and external carotid arteries without suggestion of significan t stenosis or irregular plaque. No dissection. LEFT VERTEBRAL: Patent. No dissection. OTHER: No other significant finding. OTHER: 3-D reconstructions confirm findings. IMPRESSION: NORMAL CTA OF THE EXTRA-CRANIAL CAROTID AND VERTEBRAL ARTERIES. COMMENT: Quality ID #[id number]: Measurements of distal internal carotid diameter were used as the denomina tor for stenosis measurement. TECHNICAL DOCUMENTATION: JOB ID: [id number] Quality ID # 436: Final reports with documentation of one or more dose reduction techniques (e.g., Au tomated exposure control, adjustment of the mA and/or kV according to patient size, use of iterative reconstruction technique) 2010 [employer]- All Rights Reserved Reading location - IP/workstation name: [email or web address]
[2019-02-07 10:04] LABS: INTERNATIONAL RATION (INR) 0.92; PROTHROMBIN TIME 12.4 SEC (11.4-15.4)
[2019-02-07 10:05] LABS: PARTIAL THROMBOPLASTIN TIME 26.6 SEC (23.5-35.8)
--- NOTE | 2019-02-07 11:21 | PDOC CONSULTATION ---
Consultation Consult Date: 02/07/19 Attending physician:: LINDA SAWYER Provider Consulted: JANE WEN Consult reason:: Hypertensive crisis post- History of Present Illness Admission Date/PCP: 02/07/19 05:02 ADRYAN SANDERS MD History of Present Illness: JULIO FONSECA is a 33 year old female for which I was asked to see and evaluate the patient in the emergency room after being seen by Graeme Key nurse practitioner for critical care. Due to the complexity of the patient's case my presence was necessary. I agree with the discussion, plans and findings put forth by Rochelle Shahid. Personally examined the patient evaluated the data I discussed the case and care with both the ER staff, [employer] G[employer]GER and the critical care staff. Patient is having been induced at 37 weeks 4 days for mild preeclampsia, no urinary protein. She has been having issues with hypertension since discharge. Her only medication during was aspirin. As noted, previous pregnancies were complicated by preeclampsia. Her preeclampsia was listed as mild. Her EDC was 02/18/2019. In review of her labs she has had no proteinuria. Unfortunately I am unable to find blood pressure readings on the last admission. She presented with significant hypertension as noted in the ED records. She was short of breath and had some mild chest discomfort which responded to Lasix. Her vaginal/locia output, as far as bleeding, has improved there has not been any excessive blood loss. She has had no abdominal pain. Of significance she is complained of right-sided neck and occipital pain. She had some mild visual changes. She also had paresthesias at time of delivery but none recently. She endorses positive malaise. She still has a slight mild headache on the right. She had no visual loss. Current blood pressure is 140/110. Heart rate is 80. She currently is on magnesium. She was given Lasix. We have ordered hydralazine for the elevation in diastolic blood pressure. At this point I am concerned that there may be an occult vertebral artery dissection and or PRESS phenomenon. Have ordered CT angio of the head and neck. Patient will need monitoring and will await to determine disposition until after CT scans are completed. Her creatinine is 0.84 which is at the top limit of normal for a or woman. In addition her bicarbonate is slightly elevated which may represent normalization of what should be a slightly metabolically acid state. Past Medical History Cardiac Medical History: Reports: None Pulmonary Medical History: Reports: None EENT Medical History: Reports: None Neurological Medical History: Reports: Other - Headaches on occassion Endocrine Medical History: Reports: None Renal/ Medical History: Reports: None Malignancy Medical History: Reports: None GI Medical History: Reports: None Musculoskeltal Medical History: Reports: None Psychiatric Medical History: Reports: None Traumatic Medical History: Reports: None Hematology: Reports: None Infectious Medical History: Reports: None Past Surgical History Past Surgical History: Reports: None Social History Information Source: Patient Lives with: Spouse/Significant other Smoking Status: Never Smoker Electronic Cigarette use?: No Hx Recreational Drug Use: No - Advance Directive Resuscitation Status: Full Code Family History Family History: Reviewed & Not Pertinent, Other - No history of stroke or pre- eclampsia Parental Family History Reviewed: Yes Children Family History Reviewed: Yes Sibling(s) Family History Reviewed.: Yes Medication/Allergy Home Medications: No Home Medications 02/07/19 Allergies/Adverse Reactions: No Known Allergies Allergy (Verified 01/30/19 18:24) Review of Systems Constitutional: PRESENT: fatigue, headache(s) Eyes: PRESENT: visual disturbances Ears: ABSENT: hearing changes Nose, Mouth, and Throat: PRESENT: headache(s). ABSENT: as per HPI, mouth pain, sore throat, vertigo, other Breasts: PRESENT: other - engorged. Cardiovascular: PRESENT: chest pain. ABSENT: dyspnea on exertion, edema, orthropnea, palpitations Respiratory: PRESENT: cough, dyspnea. ABSENT: hemoptysis Gastrointestinal: ABSENT: abdominal pain, constipation, diarrhea, hematemesis, hematochezia, nausea, vomiting Genitourinary: PRESENT: as per HPI. ABSENT: dysuria, hematuria Musculoskeletal: PRESENT: muscle weakness. ABSENT: back pain, joint swelling Integumentary: ABSENT: diaphoresis, erythema, lesions, rash, wounds Neurological: ABSENT: abnormal gait, abnormal speech, confusion, dizziness, focal weakness, syncope Psychiatric: ABSENT: anxiety, depression, homidical ideation, suicidal ideation Endocrine: ABSENT: cold intolerance, heat intolerance, menstrual abnormalities, polydipsia, polyuria Hematologic/Lymphatic: ABSENT: easy bleeding, easy bruising, lymphadenopathy Physical Exam Vital Signs: Temp Pulse Resp BP Pulse Ox 98.0 F 60 14 143/96 H 96 02/07/19 10:55 02/06/19 23:53 02/07/19 10:46 02/07/19 10:46 02/07/19 10:46 Intake & Output 02/06/19 02/07/19 02/08/19 06:59 06:59 06:59 Output Total 1000 Balance -1000 Weight 77.11 kg Physical Exam: Pleasant, non-toxic, post-, NAD. AA&OX3. General appearance: PRESENT: no acute distress, cooperative, well-developed, well-nourished, other - Post Head exam: PRESENT: atraumatic, normocephalic Eye exam: PRESENT: conjunctiva pink, EOMI, PERRLA. ABSENT: conjunctival injection, nystagmus, periorbital swelling, scleral icterus Additional comments: No papilledema Ear exam: PRESENT: normal external ear exam Mouth exam: PRESENT: moist, neck supple, tongue midline Teeth exam: PRESENT: poor dentation, other. ABSENT: edentulous Neck exam: PRESENT: full ROM. ABSENT: carotid bruit, JVD, lymphadenopathy, meni ngismus, tenderness, thyromegaly, tracheal deviation Respiratory exam: PRESENT: clear to auscultation tiera, symmetrical, unlabored. ABSENT: accessory muscle use, chest wall tenderness, crackles, decreased breath sounds, prolonged expiratory phas, rales, retraction, rhonchi, stridor, tachypnea, wheezes, other Cardiovascular exam: PRESENT: RRR, +S1, +S2 Pulses: PRESENT: normal carotid pulses, normal radial pulses, +2 pedal pulses bilateral Vascular exam: PRESENT: normal capillary refill. ABSENT: pallor GI/Abdominal exam: PRESENT: soft, other - Post . Appropriate. ABSENT: ascites, diminished bowel sounds, tenderness Rectal exam: PRESENT: deferred Gentrourinary exam: PRESENT: indwelling catheter Extremities exam: PRESENT: full ROM. ABSENT: joint swelling, pedal edema Musculoskeletal exam: PRESENT: normal inspection. ABSENT: deformity, dislocation, tenderness Neurological exam: PRESENT: alert, awake, oriented to person, oriented to place, oriented to time, oriented to situation. ABSENT: reflexes normal - Reflexes 3+/2, ataxia, motor sensory deficit, aphasic Psychiatric exam: PRESENT: appropriate affect, normal mood. ABSENT: agitated Focused psych exam: ABSENT: pressured speech, psychomotor agitation, restlessness Skin exam: PRESENT: dry, intact, normal color, warm. ABSENT: cyanosis, mottled, rash Results Laboratory Results: 02/07/19 00:05 02/07/19 00:05 02/07/19 02/07/19 02/07/19 00:05 00:05 00:05 WBC 8.1 RBC 4.05 Hgb 12.1 Hct 35.1 L MCV 87 MCH 29.9 MCHC 34.6 RDW 14.1 H Plt Count 353 Seg Neutrophils % 60.5 Sodium 139.9 Potassium 3.5 L Chloride 104 Carbon Dioxide 24 Anion Gap 12 BUN 13 Creatinine 0.86 Est GFR ( Amer) > 60 Glucose 88 Calcium 9.9 Ionized Calcium [place] Magnesium Total Bilirubin 0.4 AST 26 Alkaline Phosphatase 122 Total Protein 6.2 L Albumin 3.4 L Urine Color COLORLESS Urine Appearance CLEAR Urine pH 7.0 Ur Specific [place] 1.005 Urine Protein NEGATIVE Urine Glucose (UA) NEGATIVE Urine Ketones NEGATIVE Urine Blood MODERATE H Urine Nitrite NEGATIVE Ur Leukocyte Esterase NEGATIVE Urine WBC (Auto) 2 Urine RBC (Auto) 5 02/07/19 02/07/19 09:43 09:43 WBC RBC Hgb Hct MCV MCH MCHC RDW Plt Count Seg Neutrophils % Sodium Potassium Chloride Carbon Dioxide Anion Gap BUN Creatinine Est GFR ( Amer) Glucose Calcium Ionized Calcium [place] 1.11 L Magnesium 5.7 H* Total Bilirubin AST Alkaline Phosphatase Total Protein Albumin Urine Color Urine Appearance Urine pH Ur Specific [place] Urine Protein Urine Glucose (UA) Urine Ketones Urine Blood Urine Nitrite Ur Leukocyte Esterase Urine WBC (Auto) Urine RBC (Auto) 02/07/19 00:05 NT-Pro-B Natriuret Pep 666 H Impressions: Head CTA 02/07/19 00:00 IMPRESSION: NORMAL BRAIN CT WITH AND WITHOUT CONTRAST. NO CTA EVIDENCE OF STENOSIS OR ANEURYSM OF THE [place]. EVIDENCE OF ACUTE STROKE: NO. Neck CTA 02/07/19 00:00 IMPRESSION: NORMAL CTA OF THE EXTRA-CRANIAL CAROTID AND VERTEBRAL ARTERIES. Chest X-Ray 02/07/19 01:54 IMPRESSION: Clear lungs. Status: Image reviewed by me Assessment & Plan - Diagnosis (1) Pre-eclampsia in period Is this a current diagnosis for this admission?: Yes (2) Hypertensive emergency Is this a current diagnosis for this admission?: Yes (3) Pulmonary edema cardiac cause Is this a current diagnosis for this admission?: Yes (4) state Is this a current diagnosis for this admission?: Yes (5) Hypermagnesemia Is this a current diagnosis for this admission?: Yes Plan: Iatrogenic and appropriate - Time Time Spent: 50 to 70 Minutes Total Critical Time (Minutes): 70 Medications reviewed and adjusted accordingly: Yes Anticipated discharge: Home Within: within 48 hours - Inpatient Certification Based on my medical assessment, after consideration of the patient's comorbidities, presenting symptoms, or acuity I expect that the services needed warrant INPATIENT care.: Yes I certify that my determination is in accordance with my understanding of Medicare's requirements for reasonable and necessary INPATIENT services [42 CFR 412.3e].: Yes Medical Necessity: Significant Comorbidiites Make Outpatient Treatment Too Risky, Need For Continuous Telemetry Monitoring, Risk of Complication if Not Cared For in Hospital - Plan Summary Plan Summary: Patient has improved. CT of neck/head shows no dissection, no bleeding or evidence of PRES. Would suggest continuing magnesium, admit to monitored setting, frequent DTR's. Start Hydralazine Patient does not intend to breast feed. Will need echocardiogram. CXR shows mild edema. Improved with lasix Will need outpatient care and follow up for hypertension At this point, does not required ICU admission Please call Critical Care if there is a change in status.
[2019-02-07] MEDS ORDERED: ACETAMINOPHEN 325 MG TABLET ONE (12:11)
[2019-02-07] MEDS ORDERED: HYDROMORPHONE HCL INJ/PF 2 MG/ML AMPULE ONE ×3 (12:11→21:23)
[2019-02-07] MEDS: ACETAMINOPHEN 325 MG TABLET PO PRN (12:16)
[2019-02-07] MEDS: HYDROMORPHONE HCL INJ/PF 2 MG/ML AMPULE IV PRN ×3 (12:16→21:32)
[2019-02-07] MEDS ORDERED: BUTALB/ACETAMINOPHEN/CAFFEINE 1 TAB EACH PO PRN (15:37)
[2019-02-07] MEDS ORDERED: BUTALB/ACETAMINOPHEN/CAFFEINE 1 TAB EACH ONE (15:40)
[2019-02-07] MEDS ORDERED: ONDANSETRON HCL INJ/PF 4 MG/2 ML SDV ONE ×2 (15:56→21:23)
[2019-02-07 19:24] LABS: ABSOLUTE EOSINOPHILS # (AUTO) 0.1 10^3/uL (0.0-0.6); ABSOLUTE LYMPHOCYTES (AUTO) 1.3 10^3/uL (0.5-4.7); ABSOLUTE MONOCYTES (AUTO) 0.4 10^3/uL (0.1-1.4); ABSOLUTE NEUT (AUTO) 8.3 10^3/uL (1.7-8.2); BASOPHILS % (AUTO) 0.5 % (0-2); HEMATOCRIT 38.5 % (36.0-47.0); HEMOGLOBIN 13.2 g/dL (12.0-15.5); LYMPHOCYTES % (AUTO) 13.2 % (13-45); MEAN CORPUSCULAR HEMOGLOBIN 29.7 pg (27.0-33.4); MEAN CORPUSCULAR HGB CONC 34.2 g/dL (32.0-36.0); MEAN CORPUSCULAR VOLUME 87 fl (80-97); MONOCYTES % (AUTO) 4.3 % (3-13); PLATELET COUNT 423 10^3/uL (150-450); RED BLOOD COUNT 4.44 10^6/uL (3.72-5.28); RED CELL DISTRIBUTION WIDTH 14.2 % (11.5-14.0); TOTAL CELLS COUNTED % (AUTO) 100 %; WHITE BLOOD COUNT 10.2 10^3/uL (4.0-10.5)
[2019-02-07 19:48] LABS: ALBUMIN 3.8 g/dL (3.5-5.0); ALKALINE PHOSPHATASE 145 U/L (38-126); ANION GAP 14 (5-19); ASPARTATE AMINO TRANSFERASE 27 U/L (14-36); BILIRUBIN,DIRECT 0.3 mg/dL (0.0-0.4); BILIRUBIN,TOTAL 0.5 mg/dL (0.2-1.3); BLOOD UREA NITROGEN 12 mg/dL (7-20); CALCIUM 7.4 mg/dL (8.4-10.2); CARBON DIOXIDE 24 mmol/L (22-30); CHLORIDE 99 mmol/L (98-107); GLUCOSE 126 mg/dL (75-110); POTASSIUM 3.5 mmol/L (3.6-5.0); TOTAL PROTEIN 6.8 g/dL (6.3-8.2); URIC ACID 6.8 mg/dL (2.5-7.0)
[2019-02-08] MEDS ORDERED: MAGNESIUM SULFATE 20 GM/500 ML RTUINJ IV ONE (01:21)
[2019-02-08] MEDS ORDERED: PHENAZOPYRIDINE HCL 200 MG TABLET ONE (01:23)
[2019-02-08] MEDS: MAGNESIUM SULFATE 20 GM/500 ML RTUINJ IV PRN (01:28)
[2019-02-08] MEDS ORDERED: PHENAZOPYRIDINE HCL 200 MG TABLET PO ONE (01:30)
[2019-02-08] MEDS ORDERED: ONDANSETRON HCL INJ/PF 4 MG/2 ML SDV ONE ×2 (03:04→08:13)
[2019-02-08] MEDS ORDERED: HYDROMORPHONE HCL INJ/PF 2 MG/ML AMPULE ONE (03:04)
[2019-02-08] MEDS: HYDROMORPHONE HCL INJ/PF 2 MG/ML AMPULE IV PRN (03:08)
[2019-02-08] MEDS: ONDANSETRON HCL INJ/PF 4 MG/2 ML SDV IV PRN ×2 (03:09→08:23)
[2019-02-08] MEDS ORDERED: LABETALOL HCL 200 MG TABLET ONE (08:10)
[2019-02-08] MEDS: MAGNESIUM SULFATE/D5W 1 GM/100 ML RTUPB IV SCH (08:45)
[2019-02-08] MEDS: LABETALOL HCL 200 MG TABLET PO SCH ×2 (08:52→22:44)
[2019-02-08] MEDS: PHENAZOPYRIDINE HCL 200 MG TABLET PO SCH ×4 (11:00→22:44)
[2019-02-08] MEDS: ACETAMINOPHEN 325 MG TABLET PO PRN ×2 (11:00→16:42)
[2019-02-09] MEDS: OXYCODONE-ACETAMINOPHEN 5-325 MG TABLET PO PRN ×2 (02:38→08:12)
[2019-02-09] MEDS: PHENAZOPYRIDINE HCL 200 MG TABLET PO SCH ×2 (10:35→14:51)
[2019-02-09] MEDS: LABETALOL HCL 200 MG TABLET PO SCH (10:35)
--- NOTE | 2019-02-09 14:07 | PDOC PROGRESS REPORT ---
Subjective Progress Note for:: 02/09/19 Subjective:: Feeling better today. Still with TERAN but is improved from yesterday. Given percocet this am which helped TERAN as well. No n/v, CP, SOB , RUQ pain or vision changes. 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 On chart review: B/P has been normotensive overnight on Labetolol 200mg BID Reports good UOP Reason For Visit: HYPERTENSION Physical Exam - Physical Exam Vital Signs: Temp Pulse Resp BP Pulse Ox 98.0 F 68 16 118/81 96 02/09/19 07:46 02/09/19 07:46 02/09/19 07:46 02/09/19 07:46 02/09/19 07:46 Intake & Output 02/08/19 02/09/19 02/10/19 06:59 06:59 06:59 Intake Total 1000 600 Output Total 1800 Balance -800 600 Weight 77.1 kg General appearance: PRESENT: no acute distress, cooperative Respiratory exam: PRESENT: clear to auscultation tiera Cardiovascular exam: PRESENT: RRR, +S1, +S2 GI/Abdominal exam: PRESENT: soft, other - NO tenderness on palpation Neurological exam: PRESENT: reflexes normal - No clonus. Patella reflexes 2/4 bilaterally Psychiatric exam: PRESENT: appropriate affect, normal mood Skin exam: PRESENT: dry, normal color, warm Result Laboratory Results: 02/07/19 18:51 02/07/19 18:51 02/07/19 00:05 NT-Pro-B Natriuret Pep 666 H Impressions: Head CTA 02/07/19 00:00 IMPRESSION: NORMAL BRAIN CT WITH AND WITHOUT CONTRAST. NO CTA EVIDENCE OF STENOSIS OR ANEURYSM OF THE [place]. EVIDENCE OF ACUTE STROKE: NO. Neck CTA 02/07/19 00:00 IMPRESSION: NORMAL CTA OF THE EXTRA-CRANIAL CAROTID AND VERTEBRAL ARTERIES. Chest X-Ray 02/07/19 01:54 IMPRESSION: Clear lungs. Assessment & Plan - Time Time Spent with patient: 15-24 minutes - Plan Summary Plan Summary: who is HD #3 after readmission for preeclampsia -Improvement in symptoms today -B/Ps normotensive on Labetolol 200mg BID -Good UOP -Will plan d/c for today -D/c daily checks of B/P at home. Continue Labetolol as above -D/c precautions for worsening preeclampsia and when to return as needed. -F/u in office in 3-4 days for b/p check
[2019-02-09 14:21] VITALS: BP 112/75
[2019-02-09] MEDS: ACETAMINOPHEN 325 MG TABLET PO PRN (14:55)
--- NOTE | 2019-03-10 12:35 | PDOC H&P ---
History of Present Illness Admission Date/PCP: 02/07/19 05:02 MARLEN MARIO DO History of Present Illness: JULIO FONSECA is a 33 year old female s/p vaginal delivery 5 days prior. She had been induced for mild preeclampsia. And presented to the ER with elevated blood pressure. Needs to be admitted for Magnesium and blood pressure control Past Medical History Cardiac Medical History: Reports: None Pulmonary Medical History: Reports: None EENT Medical History: Reports: None Neurological Medical History: Reports: Other - Headaches on occassion Endocrine Medical History: Reports: None Renal/ Medical History: Reports: None Malignancy Medical History: Reports: None GI Medical History: Reports: None Musculoskeltal Medical History: Reports: None Psychiatric Medical History: Reports: None Traumatic Medical History: Reports: None Infectious Medical History: Reports: None Past Surgical History Past Surgical History: Reports: None Social History Lives with: Spouse/Significant other Smoking Status: Never Smoker Electronic Cigarette use?: No Hx Recreational Drug Use: No - Advance Directive Resuscitation Status: Full Code Family History Family History: Reviewed & Not Pertinent, Other - No history of stroke or pre-e clampsia Parental Family History Reviewed: Yes Children Family History Reviewed: Yes Sibling(s) Family History Reviewed.: Yes Medication/Allergy Home Medications: Labetalol HCl [Normodyne 200 mg Tablet] 200 mg PO Q12 #60 tablet 02/09/19 Oxycodone HCl/Acetaminophen [Percocet 5-325 mg Tablet] 2 tab PO Q4HP PRN #7 tablet 02/09/19 Allergies/Adverse Reactions: No Known Allergies Allergy (Verified 01/30/19 18:24) Physical Exam - Physical Exam Vital Signs: Temp Pulse Resp BP Pulse Ox 97.7 F 69 16 112/75 95 02/09/19 16:11 02/09/19 16:11 02/09/19 16:11 02/09/19 16:11 02/09/19 16:11 Result Laboratory Results: 02/07/19 18:51 02/07/19 18:51 02/07/19 00:05 NT-Pro-B Natriuret Pep 666 H Impressions: Head CTA 02/07/19 00:00 IMPRESSION: NORMAL BRAIN CT WITH AND WITHOUT CONTRAST. NO CTA EVIDENCE OF STENOSIS OR ANEURYSM OF [place]. EVIDENCE OF ACUTE STROKE: NO. Neck CTA 02/07/19 00:00 IMPRESSION: NORMAL CTA OF THE EXTRA-CRANIAL CAROTID AND VERTEBRAL ARTERIES. Chest X-Ray 02/07/19 01:54 IMPRESSION: Clear lungs. Assessment & Plan - Diagnosis (1) Headache in , Is this a current diagnosis for this admission?: Yes (2) Hypertension Qualifiers: Hypertension type: unspecified Qualified Code(s): I10 - Essential (primary) hypertension Is this a current diagnosis for this admission?: Yes (3) Hypertensive emergency Is this a current diagnosis for this admission?: Yes - Time Anticipated discharge: Home Within: within 24 hours - Inpatient Certification Based on my medical assessment, after consideration of the patient's comorbidities, presenting symptoms, or acuity I expect that the services needed warrant INPATIENT care.: Yes I certify that my determination is in accordance with my understanding of Medicare's requirements for reasonable and necessary INPATIENT services [42 CFR 412.3e].: Yes Medical Necessity: Risk of Complication if Not Cared For in Hospital
--- NOTE | 2019-03-23 08:12 | PDOC DISCHARGE SUMMARY ---
Impression - Admit/DC Date/PCP Admission Date/Primary Care Provider: 02/07/19 05:02 MARLEN MARIO, Discharge Date: 02/09/19 - Discharge Diagnosis (1) hypertension Is this a current diagnosis for this admission?: Yes (2) headache Is this a current diagnosis for this admission?: Yes - Additional Information Resuscitation Status: Full Code Discharge Diet: As Tolerated, Regular Discharge Activity: Activity As Tolerated, Balance Activity w/Rest, Pelvic Rest Referrals: SAJI CARMICHAEL MD [ACTIVE STAFF] - 02/11/19 10:00 am (PLEASE CALL THE OFFICE FOR ANY QUESTIONS AND CONCERNS.) Prescriptions: Oxycodone HCl/Acetaminophen [Percocet 5-325 mg Tablet] 2 tab PO Q4HP PRN #7 tablet PRN Reason: For Pain Scale 3-5 Labetalol HCl [Normodyne 200 mg Tablet] 200 mg PO Q12 #60 tablet Home Medications: Labetalol HCl [Normodyne 200 mg Tablet] 200 mg PO Q12 #60 tablet 02/09/19 Oxycodone HCl/Acetaminophen [Percocet 5-325 mg Tablet] 2 tab PO Q4HP PRN #7 tablet 02/09/19 History of Present Illiness History of Present Illness: JULIO FONSECA is a 33 year old female Physical Exam Vital Signs: Temp Pulse Resp BP Pulse Ox 98.0 F 68 16 118/81 96 02/09/19 07:46 02/09/19 07:46 02/09/19 07:46 02/09/19 07:46 02/09/19 07:46 Intake & Output 02/08/19 02/09/19 02/10/19 06:59 06:59 06:59 Intake Total 1000 600 Output Total 1800 Balance -800 600 Weight 77.1 kg Results Laboratory Results: WBC 10.2 10^3/uL (4.0-10.5) 02/07/19 18:51 RBC 4.44 10^6/uL (3.72-5.28) 02/07/19 18:51 Hgb 13.2 g/dL (12.0-15.5) 02/07/19 18:51 Hct 38.5 % (36.0-47.0) 02/07/19 18:51 MCV 87 fl (80-97) 02/07/19 18:51 MCH 29.7 pg (27.0-33.4) 02/07/19 18:51 MCHC 34.2 g/dL (32.0-36.0) 02/07/19 18:51 RDW 14.2 % (11.5-14.0) H 02/07/19 18:51 Plt Count 423 10^3/uL (150-450) 02/07/19 18:51 Lymph % (Auto) 13.2 % (13-45) 02/07/19 18:51 [place] % (Auto) 4.3 % (3-13) 02/07/19 18:51 Eos % (Auto) 1.0 % (0-6) 02/07/19 18:51 Baso % (Auto) 0.5 % (0-2) 02/07/19 18:51 Absolute Neuts (auto) 8.3 10^3/uL (1.7-8.2) H 02/07/19 18:51 Absolute Lymphs (auto) 1.3 10^3/uL (0.5-4.7) 02/07/19 18:51 Absolute Monos (auto) 0.4 10^3/uL (0.1-1.4) 02/07/19 18:51 Absolute Eos (auto) 0.1 10^3/uL (0.0-0.6) 02/07/19 18:51 Absolute Basos (auto) 0.0 10^3/uL (0.0-0.2) 02/07/19 18:51 Seg Neutrophils % 81.0 % (42-78) H 02/07/19 18:51 PT 12.4 SEC (11.4-15.4) 02/07/19 09:43 INR 0.92 02/07/19 09:43 APTT 26.6 SEC (23.5-35.8) 02/07/19 09:43 Sodium 137.3 mmol/L (137-145) 02/07/19 18:51 Potassium 3.5 mmol/L (3.6-5.0) L 02/07/19 18:51 Chloride 99 mmol/L (98-107) 02/07/19 18:51 Carbon Dioxide 24 mmol/L (22-30) 02/07/19 18:51 Anion Gap 14 (5-19) 02/07/19 18:51 BUN 12 mg/dL (7-20) 02/07/19 18:51 Creatinine 0.68 mg/dL (0.52-1.25) 02/07/19 18:51 Est GFR ( Amer) > 60 (>60) 02/07/19 18:51 Est GFR (MDRD) Non-Af > 60 (>60) 02/07/19 18:51 Glucose 126 mg/dL (75-110) H 02/07/19 18:51 Uric Acid 6.8 mg/dL (2.5-7.0) 02/07/19 18:51 Calcium 7.4 mg/dL (8.4-10.2) L 02/07/19 18:51 Ionized Calcium [place] 1.11 mmol/L (1.14-1.30) L 02/07/19 09:43 Magnesium 5.7 mg/dL (1.6-2.3) H* 02/07/19 09:43 Total Bilirubin 0.5 mg/dL (0.2-1.3) 02/07/19 18:51 Direct Bilirubin 0.3 mg/dL (0.0-0.4) 02/07/19 18:51 Neonat Total Bilirubin Not Reportable 02/07/19 18:51 Neonat Direct Bilirubin Not Reportable 02/07/19 18:51 Neonat Indirect Bili Not Reportable 02/07/19 18:51 AST 27 U/L (14-36) 02/07/19 18:51 ALT 34 U/L (<35) 02/07/19 18:51 Alkaline Phosphatase 145 U/L (38-126) H 02/07/19 18:51 Lactate Dehydrogenase 333 U/L (120-246) H 02/07/19 18:51 NT-Pro-B Natriuret Pep 666 pg/mL (<125) H 02/07/19 00:05 Total Protein 6.8 g/dL (6.3-8.2) 02/07/19 18:51 Albumin 3.8 g/dL (3.5-5.0) 02/07/19 18:51 Urine Color COLORLESS 02/07/19 00:05 Urine Appearance CLEAR 02/07/19 00:05 Urine pH 7.0 (5.0-9.0) 02/07/19 00:05 Ur Specific [place] 1.005 02/07/19 00:05 Urine Protein NEGATIVE mg/dL (NEGATIVE) 02/07/19 00:05 Urine Glucose (UA) NEGATIVE mg/dL (NEGATIVE) 02/07/19 00:05 Urine Ketones NEGATIVE mg/dL (NEGATIVE) 02/07/19 00:05 Urine Blood MODERATE (NEGATIVE) H 02/07/19 00:05 Urine Nitrite NEGATIVE (NEGATIVE) 02/07/19 00:05 Urine Bilirubin NEGATIVE (NEGATIVE) 02/07/19 00:05 Urine Urobilinogen NEGATIVE mg/dL (<2.0) 02/07/19 00:05 Ur Leukocyte Esterase NEGATIVE (NEGATIVE) 02/07/19 00:05 Urine WBC (Auto) 2 /HPF 02/07/19 00:05 Urine RBC (Auto) 5 /HPF 02/07/19 00:05 Squamous Epi Cells Auto <1 /HPF 02/07/19 00:05 Urine Mucus (Auto) RARE /LPF 02/07/19 00:05 Urine Ascorbic Acid NEGATIVE (NEGATIVE) 02/07/19 00:05 Urine Opiates Screen NEGATIVE 02/07/19 00:05 Urine Methadone Screen NEGATIVE 02/07/19 00:05 Ur Barbiturates Screen NEGATIVE 02/07/19 00:05 Ur Phencyclidine Scrn NEGATIVE 02/07/19 00:05 Ur Amphetamines Screen NEGATIVE 02/07/19 00:05 U Benzodiazepines Scrn NEGATIVE 02/07/19 00:05 Urine Cocaine Screen NEGATIVE 02/07/19 00:05 U Marijuana (THC) Screen NEGATIVE 02/07/19 00:05 02/07/19 00:05 NT-Pro-B Natriuret Pep 666 H Impressions: Head CTA 02/07/19 00:00 IMPRESSION: NORMAL BRAIN CT WITH AND WITHOUT CONTRAST. NO CTA EVIDENCE OF STENOSIS OR ANEURYSM OF THE [place]. EVIDENCE OF ACUTE STROKE: NO. Neck CTA 02/07/19 00:00 IMPRESSION: NORMAL CTA OF THE EXTRA-CRANIAL CAROTID AND VERTEBRAL ARTERIES. Chest X-Ray 02/07/19 01:54 IMPRESSION: Clear lungs. Stroke Is this a Stroke Patient?: No Stroke Pt being discharged on Anti-thrombolytic therapy?: No Reason(s) for not prescribing Anti-thrombolytic therapy:: Not indicated Stroke Pt being discharged on Anti-coagulation therapy?: No Reason(s) for not prescribing Anti-coagulation therapy:: Not indicated Stroke Pt being discharged on Statins?: No Reason(s) for not prescribing Statins therapy:: Not indicated Acute Heart Failure - Is this a Heart Failure Patient?: No Documentation of LVEF assessment?: No, Document reason
== END 2019-02-09 16:59 | disposition home or self-care (01) | DRG 776 ==
LOC: ER 23:08 → EH 02-07 05:02 → LR 02-07 11:29 → 2S 02-08 10:30
PROVIDERS: ADMIT Obstetrics & Gynecology; ATTEND Obstetrics & Gynecology
DX: O16.5 Unspecified maternal hypertension, complicating the puerperium (principal); I16.1 Hypertensive emergency; J81.1 Chronic pulmonary edema; O14.95 Unspecified pre-eclampsia, complicating the puerperium; E83.41 Hypermagnesemia
CPT/HCPCS: 36415; 70496; 70498; 71046; 80053; 80307; 81001; 82330; 83615; 83735; 83880; 84550; 85025; 85610; 85730; 87070; 93005; 93010; 94760; 96374; 96375; 99291; J0360; J1170; J1940; J2405; J3475; J3490; J7120